=== PATIENT | male | born 1970 | race Caucasian/White ===

== ENCOUNTER 2022-03-31 12:13 | Emergency (ER) | payer OTHER, SELFPAY ==
[2022-03-31 13:03] VITALS: BP 151/71; PULSE 71; RESP 16; TEMP 36.3; O2SAT 99; BMI 25.1
[2022-03-31 13:34] LABS: MANUAL DIFF FLAG NO
[2022-03-31 13:37] LABS: Basophils Percent Auto 0.4 % (0-2); Eosinophils Absolute Auto 0.2 X10*3/uL (0.0-0.4); Eosinophils Percent Auto 2.1 % (0-4); Hemoglobin 14.6 g/dl (14.0-18.0); Imm Gran Abs Auto 0.04 X10*3/uL (0.00-0.03); Imm Gran Pct Auto 0.4 % (0.0-0.4); Lymphocytes Absolute Auto 1.4 X10*3/uL (1.2-4.9); Lymphocytes Percent Auto 13.3 % (20-40); Mean Corpuscular Hemoglobin 31.3 pg (27.0-33.0); Mean Corpuscular Volume 92.3 fL (80.0-98.0); Mean Platelet Volume 8.8 fL (9.4-12.4); Monocytes Absolute Auto 0.8 X10*3/uL (0.1-1.2); Monocytes Percent Auto 7.9 % (2-11); Neutrophils Percent Auto 75.9 % (45-73); Platelet Count 301 X10*3/uL (160-400); Red Blood Count 4.66 X10*6/uL (4.60-5.80); Red Cell Distribution Width 12.5 % (11.0-16.0); White Blood Count 10.5 X10*3/uL (4.8-10.8)
[2022-03-31 14:01] LABS: Anion Gap 17 (12-20); Blood Urea Nitrogen 13 mg/dL (9-16); Calcium 9.6 mg/dL (8.4-10.2); Carbon Dioxide 22 mmol/L (22-29); Chloride 103 mmol/L (96-108); Creatinine Clr Calc Pharmacy 109.1; Estimated Glomerular Filt Rate > 60; Glucose Random 135 mg/dL (60-115); Potassium 4.3 mmol/L (3.3-5.1); Sodium 138 mmol/L (135-145)
[2022-03-31 14:20] LABS: Erythrocyte Sedimentation Rate 31 MM/HR (0-15)
[2022-03-31 15:23] LABS: C Reactive Protein 2.08 mg/dL (< or = 0.50)
[2022-03-31] MEDS: Lidocaine HCl 1 % MPF 5 ML VIAL SUBCUT (16:22)
--- NOTE | 2022-03-31 16:25 | ED.SKABFB ---
HPI - Skin/Abscess/Foreign Bdy General Chief complaint: Skin/Abscess/Foreign Body Stated complaint: Abscess Time Seen by Provider: 03/31/22 14:25 Source: patient Mode of arrival: ambulatory History of Present Illness HPI narrative: 51-year-old male with a past medical history of IVDA presenting to the ED complaining of abscesses to bilateral arms x1 month admits to injecting cocaine which caused abscesses. Reports erythema and pain to left arm. Denies fever, chills, drainage from areas MD complaint: abscess/boil Onset (ago): month(s) Related Data Previous Rx's Medication Instructions Recorded cephalexin 500 mg capsule 500 mg PO QID 7 days #28 caps 03/31/22 doxycycline hyclate 100 mg tablet 100 mg PO BID 7 days #14 tabs 03/31/22 Allergies Allergy/AdvReac Type Severity Reaction Status Date / Time No Known Allergies Allergy Verified 03/31/22 13:02 Review of Systems Review of Systems: Constitutional: No Fever, No Chills ENT/Mouth: No Ear Pain, No Nasal Congestion, No sore throat, No Rhinorrhea, No Swallowing Difficulty Cardiovascular: No Chest Pain, No SOB Respiratory: No Cough, No Sputum, No Wheezing Gastrointestinal: No Nausea, No Vomiting, No Abdominal pain Genitourinary: No Dysuria, No Urinary Frequency, No Hematuria, No Flank Pain Musculoskeletal: No joint pain, No Myalgias, No Joint Swelling Skin: + Skin Lesions, No rash Neuro: No Weakness, No Numbness, No Paresthesias Yes all other systems are reviewed and are negative Constitutional: Constitutional: Reports as per HPI [facility] Past Medical History Attestation statement: The following information was validated with the patient. Social History Social History Advance Directives: No Advance Directives Information Provided: No Physical Exam Vital Signs: Vital Signs: Last Vital Signs Temp 97.4 F 03/31/22 13:03 Pulse 71 03/31/22 13:03 Resp 16 03/31/22 13:03 BP 151/71 H 03/31/22 13:03 Pulse Ox 99 03/31/22 13:03 O2 Del Method 03/31/22 13:03 BMI result Body Mass Index 25.1 Const: General: cooperative, healthy appearing and no acute distress Orientation/consciousness: patient oriented x3 Limitations: no limitations HEENT: Head: Yes normal to inspection and Yes atraumatic Ears: hearing grossly normal bilaterally General nose exam: Normal external nose present Face and sinus: Yes normal facial exam Eyes: General: appearance normal, both eyes and all related structures EOM: EOMs intact bilaterally Neck: Neck: Yes normal visual inspection and Yes no meningeal signs Resp: Effort & Inspection: normal respiratory effort and no respiratory distress Cardio: Rate: regular rate Heart sounds: S1 normal heart sound present and S2 normal heart sound present Peripheral pulses: Peripheral pulses 2+ throughout Skin: Other: multiple indurated abscesses/track morrison noted to bilateral upper extremities + erythema and induration to left bicep abscess with warmth and tenderness. No fluctuance. No streaking Dorsal aspect of left hand with small erythematous abscess with small area of fluctuance. No active drainage or pointing. Rashes: no rashes Neuro: General: patient oriented x3, tone normal and no meningeal signs Gait exam (Neuro): Normal gait present Extrem: General: Yes normal to inspection Course Course Course Narrative: -1630--no leukocytosis. ESR mildly elevated to 31. CRP mildly elevated to 2.0. Lactic acid negative. -hand abscess I&D'd. patient interested in speaking with recovery > patient doesnt want to wait for recover/CARE teamm Results discussed with patient including worrisome signs and symptoms and strict return precautions, and when to return to the emergency department. They verbalized understanding and feel safe for discharge at this time. Medications Administered Discontinued Medications Generic Name Dose Route Start Last Admin Trade Name Freq PRN Reason Stop Dose Admin Lidocaine HCl 5 ml 03/31/22 15:12 03/31/22 16:22 Lidocaine Hcl 1 % Mpf 5 Ml Vial SUBCUT 03/31/22 15:13 5 ml ONCE ONE Administration MDM - Skin/Abscess/Foreign Bdy MDM Narrative Medical decision making narrative: 51-year-old male with a past medical history of IVDA presenting to the ED complaining of abscesses to bilateral arms x1 month admits to injecting cocaine which caused abscesses. On exam vital signs stable, NAD, nontoxic appearing, physical exam as above concerning for multiple indurated abscesses and overlying cellulitis to left arm. Left hand abscess drainable at this time. No streaking/lymphangitis Plan: Labs, lactic/blood cultures, I&D hand abscess Differential Diagnosis Differential diagnosis: Likely abscess of skin or subcutaneous tissue and cellulitis Medical Records Attestation: I reviewed the patient's medical records. Lab Data Attestation: I reviewed the patient's lab results. Result diagrams: 03/31/22 13:30 03/31/22 13:30 Labs: Lab Results 03/31/22 03/31/22 03/31/22 Range/Units 13:30 13:30 13:30 WBC 10.5 (4.8-10.8) X10*3/uL RBC 4.66 (4.60-5.80) X10*6/uL Hgb 14.6 (14.0-18.0) g/dl Hct 43.0 (42.0-52.0) % MCV 92.3 (80.0-98.0) fL MCH 31.3 (27.0-33.0) pg MCHC 34.0 (31.0-36.0) g/dl RDW 12.5 (11.0-16.0) % Plt Count 301 (160-400) X10*3/uL MPV 8.8 L (9.4-12.4) fL Immature Gran % (Auto) 0.4 (0.0-0.4) % Neut % (Auto) 75.9 H (45-73) % Lymph % (Auto) 13.3 L (20-40) % Camp % (Auto) 7.9 (2-11) % Eos % (Auto) 2.1 (0-4) % Baso % (Auto) 0.4 (0-2) % Lymph # (Auto) 1.4 (1.2-4.9) X10*3/uL Camp # (Auto) 0.8 (0.1-1.2) X10*3/uL Eos # (Auto) 0.2 (0.0-0.4) X10*3/uL Baso # (Auto) 0.0 (0.0-0.2) X10*3/uL Abs Immat Gran (auto) 0.04 H (0.00-0.03) X10*3/uL Absolute Neuts (auto) 8.0 (2.0-8.3) x10*3/uL Absolute Nucleated RBC 0.000 (0.0-0.012) X10*3/uL Nucleated RBC % (auto) 0.0 (0.0-0.2) /100WBC ESR 31 H (0-15) MM/HR Sodium 138 (135-145) mmol/L Potassium 4.3 (3.3-5.1) mmol/L Chloride 103 (96-108) mmol/L Carbon Dioxide 22 (22-29) mmol/L Anion Gap 17 (12-20) BUN 13 (9-16) mg/dL Creatinine 0.81 (0.5-1.4) mg/dL Estim Creat Clear Calc 109.1 Estimated GFR > 60 Random Glucose 135 H (60-115) mg/dL Lactic Acid (0.5-2.0) mmol/L Calcium 9.6 (8.4-10.2) mg/dL C-Reactive Protein 2.08 H (< or = 0.50) mg/dL 03/31/22 Range/Units 15:27 WBC (4.8-10.8) X10*3/uL RBC (4.60-5.80) X10*6/uL Hgb (14.0-18.0) g/dl Hct (42.0-52.0) % MCV (80.0-98.0) fL MCH (27.0-33.0) pg MCHC (31.0-36.0) g/dl RDW (11.0-16.0) % Plt Count (160-400) X10*3/uL MPV (9.4-12.4) fL Immature Gran % (Auto) (0.0-0.4) % Neut % (Auto) (45-73) % Lymph % (Auto) (20-40) % Camp % (Auto) (2-11) % Eos % (Auto) (0-4) % Baso % (Auto) (0-2) % Lymph # (Auto) (1.2-4.9) X10*3/uL Camp # (Auto) (0.1-1.2) X10*3/uL Eos # (Auto) (0.0-0.4) X10*3/uL Baso # (Auto) (0.0-0.2) X10*3/uL Abs Immat Gran (auto) (0.00-0.03) X10*3/uL Absolute Neuts (auto) (2.0-8.3) x10*3/uL Absolute Nucleated RBC (0.0-0.012) X10*3/uL Nucleated RBC % (auto) (0.0-0.2) /100WBC ESR (0-15) MM/HR Sodium (135-145) mmol/L Potassium (3.3-5.1) mmol/L Chloride (96-108) mmol/L Carbon Dioxide (22-29) mmol/L Anion Gap (12-20) BUN (9-16) mg/dL Creatinine (0.5-1.4) mg/dL Estim Creat Clear Calc Estimated GFR Random Glucose (60-115) mg/dL Lactic Acid 1.0 (0.5-2.0) mmol/L Calcium (8.4-10.2) mg/dL C-Reactive Protein (< or = 0.50) mg/dL Procedures Abscess I/D Site: hand Side (if applicable): left Local Anesthetic: lidocaine 1% Amount of anesthesia used (mL): 2 Technique: incised with blade Sent for culture/gram staining?: No Irrigation: Yes Packing used?: none Discharge Plan Discharge Clinical Impression: Abscess of skin or subcutaneous tissue, Cellulitis Patient Disposition: Home, Self-Care Instructions: Abscess (ED), Abscess Follow-up (ED) Additional Instructions: Your blood work was reassuring. Does show mild elevation in her inflammatory markers Keflex and doxycycline or antibiotics please take as prescribed Avoid the sun while in doxycycline as can making prone to sunburn Please avoid drug use If areas look worse, are spreading, or pointing/turn to white headache, you have fever or red streaking up your arm return to the ED Prescriptions: New cephalexin 500 mg capsule 500 mg PO QID 7 Days Qty: 28 0RF doxycycline hyclate 100 mg tablet 100 mg PO BID 7 Days Qty: 14 0RF Referrals: [facility] [Provider Group] [facility] [Provider Group] [facility] [Outside]
== END 2022-03-31 17:41 | disposition home or self-care (01) ==
PROVIDERS: Physician Assistant; Emergency Provider Emergency Medicine
DX: L02.414 Cutaneous abscess of left upper limb (principal); L03.114 Cellulitis of left upper limb; M79.602 Pain in left arm; L02.413 Cutaneous abscess of right upper limb; F19.10 Other psychoactive substance abuse, uncomplicated
CPT/HCPCS: 10060; 36415; 80048; 83605; 85025; 85652; 86140; 87040; 99282; 99284

== ENCOUNTER 2022-04-23 09:54 | Emergency (ER) | payer OTHER, SELFPAY ==
[2022-04-23 09:57] VITALS: BP 139/86; PULSE 86; RESP 16; TEMP 36.4; O2SAT 99; BMI 25.8
[2022-04-23 12:51] VITALS: BP 156/74; PULSE 58; RESP 16; TEMP 36.9; O2SAT 98
--- NOTE | 2022-04-23 13:39 | ED_ITS ---
HPI - General Adult General Chief complaint: Skin/Abscess/Foreign Body Stated complaint: abscess Time Seen by Provider: 04/23/22 13:04 Source: patient Mode of arrival: ambulatory Limitations: no limitations History of Present Illness HPI narrative: 51-year-old male history of cocaine use by IV injection presents to ED for abscess cellulitis. Patient was seen here last month for similar presentation and had improvement of abscess and cellulitis after being given antibiotics. Patient states they improved and then 2 days ago he relapsed and inject himself again. Patient does not want detox. Patient patient states no fever or chills. Patient states no needle broke inside his arm. Patient would like to trial oral antibiotis. Related Data Previous Rx's Medication Instructions Recorded cephalexin 500 mg capsule 500 mg PO QID 7 days #28 caps 03/31/22 doxycycline hyclate 100 mg tablet 100 mg PO BID 7 days #14 tabs 03/31/22 cephalexin 500 mg capsule 500 mg PO QID 7 days #28 caps 04/23/22 doxycycline hyclate 100 mg capsule 100 mg PO BID 7 days #14 caps 04/23/22 Allergies Allergy/AdvReac Type Severity Reaction Status Date / Time No Known Allergies Allergy Verified 04/23/22 09:59 Review of Systems Review of Systems: cellulits/abscess. IV injection couple of days ago Yes all other systems are reviewed and are negative [facility] Social History Social History Advance Directives: No Advance Directives Information Provided: Yes Physical Exam ED Vital Signs: Vital Signs - 24 hr 04/23/22 09:57 04/23/22 12:51 Temperature 97.5 F 98.4 F Pulse Rate 86 58 Respiratory Rate 16 16 Blood Pressure 139/86 156/74 H Pulse Oximetry 99 98 Oxygen Delivery Method Room Air Room Air BMI result Body Mass Index 25.8 Const General: cooperative, healthy appearing, comfortable, no acute distress, well developed, alert, awake and Physically active Orientation/consciousness: oriented to time and patient oriented x3 Eyes General: appearance normal, both eyes and all related structures Neck Neck: Yes normal visual inspection, Yes full ROM, Yes no lymphadenopathy, Yes no meningeal signs, Yes trachea midline, Yes supple, No anterior neck swelling and No tender Chest Chest palpation & inspection: normal inspection of the chest and normal palpation of entire chest wall Resp Effort & Inspection: normal respiratory effort and able to speak in complete sentences Auscultation: clear to auscultation bilaterally Cardio Jugular venous distension: no JVD Heart sounds: S1 normal heart sound present and S2 normal heart sound present GI Inspection: Yes normal to inspection and No abdominal wall ecchymosis Palpation (GI): Soft to palpation, not firm, nontender, no guarding and not rigid General: No CVA tenderness and Yes no CVA tenderness Back/Spine/Pelvis Back: no CVA tenderness, No CVA tenderness and No back tenderness Skin Other: cellulitis/abscess Neuro General: oriented to time, patient oriented x3, gait normal and no meningeal signs Extrem Shoulder/upper arm images: 1. Old chronic cellulitic abscess nontender, nonerythematous, and nonfluctuant. 2. Small area of erythema/warmth, but negative for any fluctuance, pus discharge, or foul odor. 3. Small area of erythema with warmth. Negative for any fluctuance pus discharge, mass, followed up Hand/finger images: 1. Small area of erythema and warmth. Negative for fluctuance or mass on palpation. Hand is not swollen. Complete range of motion of fingers. Negative for signs of tenosynovitis. Motor/neuro/vascular exam intact Psych Appearance: grossly normal, well kempt and not disheveled Course Course Course Narrative: Patient well appearing vital signs stable. Reevaluation(s) Reevaluation #1: Patient does not want detox. Patient prefer trial of oral antibiotics. Patient presently does not want inpatient care. Patient well-appearing. Negative for any abscess ready for incision and drainage. Presently not suspecting sepsis. Vital signs stable. Patient was informed due to history of IV drug use with cocaine he should have a low threshold for return to the ED. patient inform any fever, chills, sensation of weakness, worsening rash, worsening erythema, worsening abscess, pus discharge, foul odor, any other concerning symptoms he should come back to the ER. Time: 14:10 Discharge Plan Discharge Clinical Impression: Cellulitis, Abscess of skin or subcutaneous tissue Patient Disposition: Home, Self-Care Instructions: Cellulitis (ED), Abscess (ED) Additional Instructions: Return to the ED immediately for any fever, chills, weakness, dizziness, increased redness, increased size, fever, pus discharge, foul odor, or any other concerning symptoms. Prescriptions: New cephalexin 500 mg capsule 500 mg PO QID 7 Days Qty: 28 0RF doxycycline hyclate 100 mg capsule 100 mg PO BID 7 Days Qty: 14 0RF No Action cephalexin 500 mg capsule 500 mg PO QID 7 Days Qty: 28 0RF doxycycline hyclate 100 mg tablet 100 mg PO BID 7 Days Qty: 14 0RF Referrals: Cipriano Cintron III, MD [Primary Care Provider] - (Cellulitis/abscess) Stand Alone Forms: Work/School Release Interventions: ED Discharge Assessment Last Done: 04/23/22 13:53 Discharge Date/Time: 04/23/22 13:55 Print Language: Citizen Of [place]
== END 2022-04-23 13:55 | disposition home or self-care (01) ==
PROVIDERS: Emergency Provider Emergency Medicine; PCP Internal Medicine
DX: L02.414 Cutaneous abscess of left upper limb (principal); L02.413 Cutaneous abscess of right upper limb; L03.90 Cellulitis, unspecified
CPT/HCPCS: 99283

== ENCOUNTER 2022-09-17 10:21 | Emergency (ER) | payer OTHER, SELFPAY ==
[2022-09-17 10:40] VITALS: BP 151/77; PULSE 82; RESP 19; TEMP 36.6; O2SAT 99; BMI 25.8
--- NOTE | 2022-09-17 11:31 | ED.GENADULT ---
HPI - General Adult General Chief complaint: Wound/Laceration Stated complaint: Blood poisoning? Time Seen by Provider: 09/17/22 11:28 Source: patient Mode of arrival: ambulatory Limitations: no limitations History of Present Illness HPI narrative: Patient is a 51 year old assigned male at with a history of IVDU presenting to the emergency department today with an abscess. Patient states that he is shooting up IV cocaine and now has multiple swollen areas on his arms. Patient denies any dizziness, lightheadedness, abdominal pain, nausea, vomiting, fever, chills, blurry vision, double vision, loss of vision, chest pain, difficulty breathing, shortness of breath, back pain, night sweats, pain with urination, increased urinary frequency, increased urinary urgency, blood in his urine or stool, syncope or a near syncopal episode, recent trauma or falls, bowel incontinence, bladder incontinence, bowel retention, bladder retention, or any other complaints at this time. Onset (ago): day(s) Location: left, right and upper extremity Severity: mild Severity scale (1-10): 3 Relieving factors: none Exacerbating factors: none Associated symptoms: denies other symptoms Treatments prior to arrival: none Related Data Previous Rx's Medication Instructions Recorded cephalexin 500 mg capsule 500 mg PO QID 7 days #28 caps 03/31/22 doxycycline hyclate 100 mg tablet 100 mg PO BID 7 days #14 tabs 03/31/22 cephalexin 500 mg capsule 500 mg PO QID 7 days #28 caps 04/23/22 doxycycline hyclate 100 mg capsule 100 mg PO BID 7 days #14 caps 04/23/22 cephalexin 500 mg capsule 500 mg PO Q6H 7 days #28 caps 09/17/22 doxycycline hyclate 100 mg tablet 100 mg PO BID 7 days #14 tabs 09/17/22 Allergies Allergy/AdvReac Type Severity Reaction Status Date / Time No Known Allergies Allergy Verified 09/17/22 10:39 Review of Systems Constitutional: Constitutional: Reports no additional constitutional complaints, Denies chills, Denies fever(s) and Denies night sweats Eyes: Eyes: Reports no additional eye complaints, Denies blurry vision, Denies change in vision, Denies diplopia, Denies eye discharge, Denies loss of vision and Denies eye pain ENT: Denies dizziness Cardiovascular: Cardiovascular: Reports no additional cardiovascular complaints, Denies chest pain, Denies lightheadedness, Denies Loss of Consciousness and Denies dyspnea Respiratory: Respiratory: Reports no additional respiratory complaints and Denies dyspnea Gastrointestinal: Gastrointestinal: Reports no additional gastrointestinal complaints, Denies abdominal pain, Denies melena, Denies hematochezia, Denies change in bowel habits and Denies change in stool character Genitourinary: Genitourinary: Reports no additional male genitourinary complaints, Denies hematuria, Denies oliguria, Denies difficulty urinating, Denies dysuria, Denies urinary frequency, Denies urinary hesitancy, Denies urinary incontinence and Denies urinary urgency Musculoskeletal: Musculoskeletal: Reports no additional musculoskeletal complaints, Denies numbness and Denies tingling Integumentary/Breasts: Comments: large abscess to the left bicep, multiple track morrison to bilateral arms Neurologic: Denies dizziness, Denies loss of vision, Denies numbness and Denies tingling Psychiatric: Psychiatric: Reports no additional psychiatric complaints Endocrine: Endocrine: Reports no additional endocrine complaints Hematologic/Lymphatic: Hematologic/Lymphatic: Reports no additional hematologic/lymphatic complaints Allergic/Immunologic: Allergic/Immunologic: Reports no additional allergic/immunologic complaints [facility] Past Medical History Attestation statement: The following information was validated with the patient. Source: old records reviewed and nursing notes reviewed Social History Social History Advance Directives: No Advance Directives Information Provided: No Physical Exam ED Vital Signs: Vital Signs - 24 hr 09/17/22 10:40 Temperature 98 F Pulse Rate 82 Respiratory Rate 19 Blood Pressure 151/77 H Pulse Oximetry 99 Oxygen Delivery Method Room Air BMI result Body Mass Index 25.8 Const General: cooperative, no acute distress, alert and awake Nutritional Appearance: well nourished Orientation/consciousness: patient oriented x3 Limitations: no limitations HENMT Head: Yes normal to inspection and Yes atraumatic Ears: hearing grossly normal bilaterally and external ears normal General nose exam: Normal external nose present, no nasal discharge noted and no epistaxis Face and sinus: Yes normal facial exam, No abrasion and No laceration Mouth: Normal oral and palatal mucosa present, no drooling and no muffled voice Eyes General: appearance normal, both eyes and all related structures Periorbital: periorbital findings normal Eyelids: Yes eyelids normal Conjunctivae: conjunctivae normal Pupils: Equal, round and reactive pupils present EOM: EOMs intact bilaterally Neck Neck: Yes normal visual inspection, Yes full ROM and Yes no lymphadenopathy Chest Chest palpation & inspection: normal inspection of the chest Resp Effort & Inspection: normal respiratory effort and able to speak in complete sentences Auscultation: clear to auscultation bilaterally Cardio Rate: regular rate Rhythm: regular rhythm GI Inspection: Yes normal to inspection Neuro General: patient oriented x3 and moves all extremities Cranial nerves: Yes Equal, round and reactive pupils present Cognition (Neuro): normal cognition Motor exam (neuro): 5/5 motor strength present throughout Sensory Exam: Normal double simultaneous stimulation for sensation Coordination: [id number] test normal Extrem Other: large abscess present to the anterior left bicep and multiple track morrison present to bilateral arms General: Yes full ROM and Yes capillary refill normal Psych Appearance: grossly normal Mental Status: mental status grossly normal Affect: normal affect Attitude: cooperative Thought process: Normal thought process present Thought content: Normal thought content present Insight: Good insight present (Psych) Medications Administered Discontinued Medications Generic Name Dose Route Start Last Admin Trade Name Hector PRN Reason Stop Dose Admin Lidocaine HCl 10 ml 09/17/22 11:46 09/17/22 12:42 Lidocaine Hcl 1 % Mpf 5 Ml Vial SUBCUT 09/17/22 11:47 10 ml ONCE ONE Administration Procedures Abscess I/D Site: upper extremity Side (if applicable): left Local Anesthetic: lidocaine 1% Amount of anesthesia used (mL): 5 Technique: incised with blade Amount of fluid expressed (mL): 25 Sent for culture/gram staining?: No Irrigation: No Packing used?: none Medical Decision Making Medical Decision Making MDM Narrative: Patient is a 51 year old assigned male at with a history of IVDU presenting to the emergency department today with a left bicep abscess. Patient's physical exam showed multiple track morrison to bilateral upper arms and 1 large abscess to the left anterior bicep. I explained my physical exam findings to the patient. I answered all questions asked by the patient. I incised and drained the large left bicep abscess, without incident, per procedure note. Recovery team met with the patient and provided sobriety resources. I stressed the importance of the patient taking his medication as prescribed. I stressed the importance of the patient following up with his primary care provider. I stressed the importance of the patient returning to the emergency department immediately if his symptoms were to worsen or if he were to develop any dizziness, shortness of breath, difficulty breathing, chest pain, blurry vision, loss of vision, nausea, vomiting, abdominal pain, fever, chills, back pain, or any other complaints. Patient verbalized agreement and understanding with this treatment plan and discharge. Differential Diagnosis Differential Diagnoses: The differential diagnosis associated with the presentation includes left bicep abscess Discharge Plan Discharge Clinical Impression: Abscess Patient Disposition: Home, Self-Care Instructions: Abscess (ED), Abscess Incision and Drainage (DC) Additional Instructions: Apply warm compresses to the other affected areas. Follow up with your primary care provider. Return to the emergency department immediately if your symptoms worsen or if you develop any dizziness, shortness of breath, difficulty breathing, chest pain, blurry vision, loss of vision, nausea, vomiting, abdominal pain, fever, chills, back pain, or any other complaints. Prescriptions: New cephalexin 500 mg capsule 500 mg PO Q6H 7 Days Qty: 28 0RF doxycycline hyclate 100 mg tablet 100 mg PO BID 7 Days Qty: 14 0RF No Action cephalexin 500 mg capsule 500 mg PO QID 7 Days Qty: 28 0RF doxycycline hyclate 100 mg capsule 100 mg PO BID 7 Days Qty: 14 0RF cephalexin 500 mg capsule 500 mg PO QID 7 Days Qty: 28 0RF doxycycline hyclate 100 mg tablet 100 mg PO BID 7 Days Qty: 14 0RF Referrals: Cipriano Cintron III, MD [Primary Care Provider] - Stand Alone Forms: Work/School Release Interventions: ED Discharge Assessment Last Done: 09/17/22 12:48 Discharge Date/Time: 09/17/22 12:49 Print Language: Serbian
--- NOTE | 2022-09-17 12:19 | MHC.RECOVSUP ---
Met with pt in [facility] to provide and review recovery resources. Pt shares he has been using cocaine intravenously after having been sober for 4 days. Pt shares he struggles as his coworker uses and he relies on this coworker for a ride to work. Stating his coworker always offers him cocaine and makes it hard for him to avoid it. Pt informs his brother is a head strength and conditioning coach but is open to seeing another head strength and conditioning coach and trying therapy. Pt shares he is not ready to try ATS or CSS as he doesn't want to lose his apartment or job, but if utilizing recovery resources does not work he will consider ATS. Pt has no other questions or concerns at this time.
[2022-09-17] MEDS: Lidocaine HCl 1 % MPF 5 ML VIAL 10 ML SUBCUT (12:42)
== END 2022-09-17 12:49 | disposition home or self-care (01) ==
PROVIDERS: Emergency Provider Emergency Medicine; PCP Internal Medicine
DX: L02.414 Cutaneous abscess of left upper limb (principal); Z79.899 Other long term (current) drug therapy
CPT/HCPCS: 10060; 99282; 99284

== ENCOUNTER 2022-10-14 12:48 | Emergency (ER) | payer OTHER, SELFPAY ==
--- NOTE | ~2022-10-14 | XR_ITS ---
EXAMINATION: XR FOREARM, RIGHT CLINICAL INFORMATION: Redness. Rule out osteomyelitis. COMPARISON: None available. TECHNIQUE: AP and lateral views of the right forearm were obtained. FINDINGS: The bones and soft tissues are normal. No fracture. Imaged portions of the elbow and wrist are unremarkable. XR/XR forearm RT 2V IMPRESSION: Normal right forearm. No soft tissue gas or bony erosive changes seen to suspect any osteomyelitis.
[2022-10-14 12:54] VITALS: BP 117/55; PULSE 73; RESP 17; TEMP 35.9; O2SAT 100
[2022-10-14 15:47] LABS: MANUAL DIFF FLAG NO
[2022-10-14 15:49] LABS: Lactic Acid 2.1 mmol/L (0.5-2.0)
[2022-10-14 15:53] LABS: Basophils Absolute Auto 0.1 X10*3/uL (0.0-0.2); Basophils Percent Auto 0.4 % (0-2); Eosinophils Absolute Auto 0.3 X10*3/uL (0.0-0.4); Eosinophils Percent Auto 2.3 % (0-4); Hematocrit 38.7 % (42.0-52.0); Hemoglobin 12.8 g/dl (14.0-18.0); Imm Gran Abs Auto 0.04 X10*3/uL (0.00-0.03); Imm Gran Pct Auto 0.3 % (0.0-0.4); Lymphocytes Absolute Auto 1.9 X10*3/uL (1.2-4.9); Mean Corpuscular HGB Conc 33.1 g/dl (31.0-36.0); Mean Corpuscular Hemoglobin 31.1 pg (27.0-33.0); Mean Corpuscular Volume 94.2 fL (80.0-98.0); Mean Platelet Volume 9.1 fL (9.4-12.4); Monocytes Absolute Auto 1.1 X10*3/uL (0.1-1.2); Monocytes Percent Auto 8.2 % (2-11); Neutrophils Absolute Auto 9.5 x10*3/uL (2.0-8.3); Neutrophils Percent Auto 73.8 % (45-73); Platelet Count 309 X10*3/uL (160-400); Red Blood Count 4.11 X10*6/uL (4.60-5.80); Red Cell Distribution Width 12.6 % (11.0-16.0); White Blood Count 12.9 X10*3/uL (4.8-10.8)
[2022-10-14 16:09] LABS: Anion Gap 11 (12-20); Blood Urea Nitrogen 13 mg/dL (9-16); C Reactive Protein 1.13 mg/dL (< or = 0.50); Calcium 8.9 mg/dL (8.4-10.2); Carbon Dioxide 26 mmol/L (22-29); Chloride 106 mmol/L (96-108); Estimated Glomerular Filt Rate > 60; Glucose Random 109 mg/dL (60-115); Potassium 4.3 mmol/L (3.3-5.1); Sodium 139 mmol/L (135-145)
[2022-10-14] MEDS: 0.9 % Sodium Chloride 1,000 ML 999 ML IV ×2 (16:35)
--- NOTE | 2022-10-14 16:56 | ED_ITS ---
HPI - General Adult General Chief complaint: Wound/Laceration Stated complaint: Severe Sepsis Time Seen by Provider: 10/14/22 16:08 Source: patient Mode of arrival: ambulatory Limitations: no limitations History of Present Illness HPI narrative: 51 yold male IV drug use presents to the ED for right forearm redness/pain with wound. Patient denies injecting IV drugs into forearm. patient states bodyaches and chills, but no fever. patient denies any chest pain or shortness of breath Related Data Previous Rx's Medication Instructions Recorded cephalexin 500 mg capsule 500 mg PO QID 7 days #28 caps 03/31/22 doxycycline hyclate 100 mg tablet 100 mg PO BID 7 days #14 tabs 03/31/22 cephalexin 500 mg capsule 500 mg PO QID 7 days #28 caps 04/23/22 doxycycline hyclate 100 mg capsule 100 mg PO BID 7 days #14 caps 04/23/22 cephalexin 500 mg capsule 500 mg PO Q6H 7 days #28 caps 09/17/22 doxycycline hyclate 100 mg tablet 100 mg PO BID 7 days #14 tabs 09/17/22 cephalexin 500 mg capsule 500 mg PO QID 7 days #28 caps 10/14/22 doxycycline hyclate 100 mg capsule 100 mg PO BID 7 days #14 caps 10/14/22 Allergies Allergy/AdvReac Type Severity Reaction Status Date / Time No Known Allergies Allergy Verified 09/17/22 10:39 Review of Systems Review of Systems: right forearm area of redness Yes all other systems are reviewed and are negative PMFSH Social History Social History Smoked in Last 30 Days: Yes Use of substances other than those prescribed or required for medical reasons: Yes Substance Use Type: Crack/Cocaine and Heroin Substance Use Frequency: Chronic Longstanding Last Used Substance: Just Prior to Admission Advance Directives: No Advance Directives Information Provided: No Physical Exam ED Vital Signs: Vital Signs - 24 hr 10/14/22 12:54 10/14/22 20:09 Temperature 96.7 F L 98.3 F Pulse Rate 73 94 Respiratory Rate 17 18 Blood Pressure 117/55 L 119/65 Pulse Oximetry 100 98 Oxygen Delivery Method Room Air Room Air BMI result Body Mass Index 0.2 Const General: cooperative, healthy appearing, comfortable, no acute distress, well developed, alert, awake and Physically active Orientation/consciousness: oriented to person, oriented to place, oriented to time and patient oriented x3 [facility] Head: Yes normal to inspection, Yes No palpable skull fracture present, Yes normocephalic, Yes atraumatic and No abrasion Eyes General: appearance normal, both eyes and all related structures Neck Neck: Yes normal visual inspection, Yes full ROM, Yes no lymphadenopathy, Yes no meningeal signs, Yes trachea midline, Yes supple, No anterior neck swelling and No tender Chest Chest palpation & inspection: normal inspection of the chest and normal palpatio n of entire chest wall Resp Effort & Inspection: normal respiratory effort and able to speak in complete sentences Auscultation: clear to auscultation bilaterally Cardio Jugular venous distension: no JVD Heart sounds: S1 normal heart sound present and S2 normal heart sound present GI Inspection: Yes normal to inspection and No abdominal wall ecchymosis Palpation (GI): Soft to palpation, not firm, nontender, no guarding and not rigid General: No CVA tenderness and Yes no CVA tenderness Back/Spine/Pelvis Back: no CVA tenderness, No CVA tenderness and No back tenderness Skin General skin exam: no rashes or lesions noted and elasticity normal Neuro General: oriented to person, oriented to place, oriented to time, patient oriented x3, gait normal, tone normal, moves all extremities, Normal light touch and pain sensation, no meningeal signs, no focal motor deficits, CN's II-XI intact bilaterally and normal sensation to monofilament Extrem Other: RIght forearm area with wome erythema. negative for fluctulnace. Serosangous discharge from wound. Vascular/motor/neuro exam of extremity is intact. General: Yes normal to inspection and Yes full ROM Psych Appearance: grossly normal, well kempt and not disheveled Course Course Course Narrative: 51 yold male with right forearm redness. Medications Administered Discontinued Medications Generic Name Dose Route Start Last Admin Trade Name Freq PRN Reason Stop Dose Admin Sodium Chloride 1,000 mls @ 999 mls/hr 10/14/22 16:08 10/14/22 17:32 Ns IV 10/14/22 17:08 Infused .Q1H1M STA Infusion Sodium Chloride 1,000 mls @ 999 mls/hr 10/14/22 16:08 10/14/22 17:32 Ns IV 10/14/22 17:08 Infused .Q1H1M STA Infusion Piperacillin Sod/Tazobactam 50 mls @ 100 mls/hr 10/14/22 16:30 10/14/22 19:06 Sod 3.375 gm/ Sodium Chloride IV 10/14/22 16:59 Infused ONCE ONE Infusion Medical Decision Making Medical Decision Making [facility] Narrative: 51 Yo male IV drug use presents to ED for right redness area on forearm with serosanguineous fluid. Negative for fluctuance or palpable mass. Not yet ready to be drained. Most likely early cellulitis early abscess. X-ray negative for osteomyelitis. ESR and CRP elevated which is baseline. White count only 12. Lactic acid resolved. Patient is not septic or sick appearing. Patient received vancomycin in the ER. Patient will be discharged with p.o. antibiotics. HIsotry and physical exam does not indicate DVT. Differential Diagnosis Differential Diagnoses: The differential diagnosis associated with the presentation includes (Osteomyelitis, cellulitis, necrotizing fasciitis, DVT) Admission/Observation Consideration of admission/observation: Escalation of care including admission/observation considered Lab Data [facility] Lab Attestation statement: I reviewed the patient's lab results. 10/14/22 15:39 10/14/22 15:39 Labs: Lab Results 10/14/22 10/14/22 10/14/22 Range/Units 15:17 15:39 15:39 WBC 12.9 H (4.8-10.8) X10*3/uL RBC 4.11 L (4.60-5.80) X10*6/uL Hgb 12.8 L (14.0-18.0) g/dl Hct 38.7 L (42.0-52.0) % MCV 94.2 (80.0-98.0) fL MCH 31.1 (27.0-33.0) pg MCHC 33.1 (31.0-36.0) g/dl RDW 12.6 (11.0-16.0) % Plt Count 309 (160-400) X10*3/uL MPV 9.1 L (9.4-12.4) fL Immature Gran % (Auto) 0.3 (0.0-0.4) % Neut % (Auto) 73.8 H (45-73) % Lymph % (Auto) 15.0 L (20-40) % [place] % (Auto) 8.2 (2-11) % Eos % (Auto) 2.3 (0-4) % Baso % (Auto) 0.4 (0-2) % Lymph # (Auto) 1.9 (1.2-4.9) X10*3/uL [place] # (Auto) 1.1 (0.1-1.2) X10*3/uL Eos # (Auto) 0.3 (0.0-0.4) X10*3/uL Baso # (Auto) 0.1 (0.0-0.2) X10*3/uL Abs Immat Gran (auto) 0.04 H (0.00-0.03) X10*3/uL Absolute Neuts (auto) 9.5 H (2.0-8.3) x10*3/uL Absolute Nucleated RBC 0.000 (0.0-0.012) X10*3/uL Nucleated RBC % (auto) 0.0 (0.0-0.2) /100WBC ESR (0-15) MM/HR Sodium 139 (135-145) mmol/L Potassium 4.3 (3.3-5.1) mmol/L Chloride 106 (96-108) mmol/L Carbon Dioxide 26 (22-29) mmol/L Anion Gap 11 L (12-20) BUN 13 (9-16) mg/dL Creatinine 0.73 (0.5-1.4) mg/dL Estim Creat Clear Calc 126.0 Estimated GFR > 60 Random Glucose 109 (60-115) mg/dL Lactic Acid 2.1 H* (0.5-2.0) mmol/L Lactic Acid F/U @ 2Hr (0.5-2.0) mmol/L Calcium 8.9 D (8.4-10.2) mg/dL C-Reactive Protein 1.13 H (< or = 0.50) mg/dL 10/14/22 10/14/22 Range/Units 15:39 18:37 WBC (4.8-10.8) X10*3/uL RBC (4.60-5.80) X10*6/uL Hgb (14.0-18.0) g/dl Hct (42.0-52.0) % MCV (80.0-98.0) fL MCH (27.0-33.0) pg MCHC (31.0-36.0) g/dl RDW (11.0-16.0) % Plt Count (160-400) X10*3/uL MPV (9.4-12.4) fL Immature Gran % (Auto) (0.0-0.4) % Neut % (Auto) (45-73) % Lymph % (Auto) (20-40) % [place] % (Auto) (2-11) % Eos % (Auto) (0-4) % Baso % (Auto) (0-2) % Lymph # (Auto) (1.2-4.9) X10*3/uL [place] # (Auto) (0.1-1.2) X10*3/uL Eos # (Auto) (0.0-0.4) X10*3/uL Baso # (Auto) (0.0-0.2) X10*3/uL Abs Immat Gran (auto) (0.00-0.03) X10*3/uL Absolute Neuts (auto) (2.0-8.3) x10*3/uL Absolute Nucleated RBC (0.0-0.012) X10*3/uL Nucleated RBC % (auto) (0.0-0.2) /100WBC ESR 27 H (0-15) MM/HR Sodium (135-145) mmol/L Potassium (3.3-5.1) mmol/L Chloride (96-108) mmol/L Carbon Dioxide (22-29) mmol/L Anion Gap (12-20) BUN (9-16) mg/dL Creatinine (0.5-1.4) mg/dL Estim Creat Clear Calc Estimated GFR Random Glucose (60-115) mg/dL Lactic Acid (0.5-2.0) mmol/L Lactic Acid F/U @ 2Hr 1.0 (0.5-2.0) mmol/L Calcium (8.4-10.2) mg/dL C-Reactive Protein (< or = 0.50) mg/dL Independent Interpretation I performed an independent interpretation of an: Plain X-Ray Radiology Impression Discussion of test interpretation with radiology: I have reviewed the radiologist's reading. Prescription Management I considered prescription management with: Antibiotic Discharge Plan Discharge Clinical Impression: Cellulitis Patient Disposition: Home, Self-Care Instructions: Cellulitis (ED), Warm Compress or Soak (ED) Additional Instructions: Return to the ED for increased swelling, increased redness, pus discharge, foul odor, fever, chills, red streaks, chest pain, shortness of breath, or any other concerning symptoms. Please follow-up primary care provider Prescriptions: New cephalexin 500 mg capsule 500 mg PO QID 7 Days Qty: 28 0RF doxycycline hyclate 100 mg capsule 100 mg PO BID 7 Days Qty: 14 0RF No Action cephalexin 500 mg capsule 500 mg PO QID 7 Days Qty: 28 0RF doxycycline hyclate 100 mg capsule 100 mg PO BID 7 Days Qty: 14 0RF cephalexin 500 mg capsule 500 mg PO QID 7 Days Qty: 28 0RF doxycycline hyclate 100 mg tablet 100 mg PO BID 7 Days Qty: 14 0RF cephalexin 500 mg capsule 500 mg PO Q6H 7 Days Qty: 28 0RF doxycycline hyclate 100 mg tablet 100 mg PO BID 7 Days Qty: 14 0RF Interventions: ED Discharge Assessment Last Done: 10/14/22 20:30 Discharge Date/Time: 10/14/22 20:30 Print Language: Setswana
[2022-10-14] MEDS: Piperacillin Sodium/Tazobactam 3.375 GM in 0.9 % Sodium Chloride 50 ML IV (17:07)
[2022-10-14 17:14] LABS: Erythrocyte Sedimentation Rate 27 MM/HR (0-15)
[2022-10-14 17:21] LABS: Reflex Lactate? Lactic Acid Added
[2022-10-14 20:09] VITALS: BP 119/65; PULSE 94; RESP 18; TEMP 36.8; O2SAT 98
== END 2022-10-14 20:30 | disposition home or self-care (01) ==
PROVIDERS: Physician Assistant; Emergency Provider Emergency Medicine; PCP Internal Medicine
DX: L03.113 Cellulitis of right upper limb (principal); M79.631 Pain in right forearm; Z79.899 Other long term (current) drug therapy
CPT/HCPCS: 36415; 73090; 80048; 83605; 85025; 85652; 86140; 87040; 96361; 96365; 99284; J2543

== ENCOUNTER 2023-05-05 21:06 | Emergency (ER) | payer OTHER, SELFPAY ==
[2023-05-05 21:29] VITALS: BP 132/73; PULSE 88; RESP 20; TEMP 36.5; O2SAT 98; BMI 25.1
[2023-05-06 03:10] VITALS: BP 119/65; PULSE 61; RESP 16; TEMP 36.8; O2SAT 100
[2023-05-06 03:12] LABS: MANUAL DIFF FLAG NO
[2023-05-06 03:14] LABS: Basophils Absolute Auto 0.1 X10*3/uL (0.0-0.2); Basophils Percent Auto 0.5 % (0-2); Eosinophils Absolute Auto 0.6 X10*3/uL (0.0-0.4); Hematocrit 42.5 % (42.0-52.0); Hemoglobin 14.3 g/dl (14.0-18.0); Imm Gran Abs Auto 0.12 X10*3/uL (0.00-0.03); Lymphocytes Absolute Auto 3.4 X10*3/uL (1.2-4.9); Lymphocytes Percent Auto 28.2 % (20-40); Mean Corpuscular HGB Conc 33.6 g/dl (31.0-36.0); Mean Corpuscular Hemoglobin 31.3 pg (27.0-33.0); Mean Platelet Volume 9.5 fL (9.4-12.4); Monocytes Absolute Auto 1.4 X10*3/uL (0.1-1.2); Neutrophils Absolute Auto 6.3 x10*3/uL (2.0-8.3); Neutrophils Percent Auto 53.3 % (45-73); Platelet Count 319 X10*3/uL (160-400); Red Blood Count 4.57 X10*6/uL (4.60-5.80); Red Cell Distribution Width 12.9 % (11.0-16.0); White Blood Count 11.9 X10*3/uL (4.8-10.8)
[2023-05-06 03:30] LABS: Alanine Aminotransferase 56 U/L (0-40); Albumin Level 3.8 g/dL (3.5-5.0); Alkaline Phosphatase 77 U/L (39-117); Anion Gap 12 (12-20); Aspartate Amino Transferase 39 U/L (5-37); Bilirubin Total 0.2 mg/dL (0.0-1.0); Blood Urea Nitrogen 22 mg/dL (9-16); Calcium 9.3 mg/dL (8.4-10.2); Carbon Dioxide 25 mmol/L (22-29); Chloride 103 mmol/L (96-108); Creatinine Clr Calc Pharmacy 101.6; Estimated Glomerular Filt Rate > 60; Glucose Random 103 mg/dL (60-115); Potassium 4.2 mmol/L (3.3-5.1); Sodium 136 mmol/L (135-145); Total Protein 7.9 g/dL (6.5-8.0)
[2023-05-06 04:35] VITALS: BP 127/64; PULSE 80; RESP 16; TEMP 36.9; O2SAT 98
--- NOTE | 2023-05-06 06:28 | ED.GENADULT ---
HPI - General Adult General Chief complaint: General Medical Stated complaint: Blood poisoning? Time Seen by Provider: 05/06/23 06:27 Source: patient Mode of arrival: ambulatory Limitations: no limitations History of Present Illness HPI narrative: Patient is a 52-year-old male with history of IV drug use presenting to the emergency department with complaint of bilateral forearm scabs, redness and pain for the past several weeks. He reports subjective fevers and chills but has not taken his temperature with a thermometer. He denies any chest pain, palpitations, shortness of breath. Denies any headaches, vision changes, dizziness or lightheadedness. Denies any abdominal pain, nausea, vomiting, diarrhea. Denies any discharge or drainage from the wounds. He states that he is concerned for bacteremia/sepsis. MD complaint: Bilateral arm pain Onset (ago): week(s) Location: upper extremity Radiation: non-radiation Severity: moderate Quality: aching Pain Consistency: colicky Relieving factors: none Exacerbating factors: none Associated symptoms: fever/chills Treatments prior to arrival: none Related Data Previous Rx's Medication Instructions Recorded cephalexin 500 mg capsule 500 mg PO QID 7 days #28 caps 03/31/22 doxycycline hyclate 100 mg tablet 100 mg PO BID 7 days #14 tabs 03/31/22 cephalexin 500 mg capsule 500 mg PO QID 7 days #28 caps 04/23/22 doxycycline hyclate 100 mg capsule 100 mg PO BID 7 days #14 caps 04/23/22 cephalexin 500 mg capsule 500 mg PO Q6H 7 days #28 caps 09/17/22 doxycycline hyclate 100 mg tablet 100 mg PO BID 7 days #14 tabs 09/17/22 cephalexin 500 mg capsule 500 mg PO QID 7 days #28 caps 10/14/22 doxycycline hyclate 100 mg capsule 100 mg PO BID 7 days #14 caps 10/14/22 cephalexin 500 mg capsule 500 mg PO QID #28 caps 05/06/23 doxycycline hyclate 100 mg capsule 100 mg PO BID #14 caps 05/06/23 Allergies Allergy/AdvReac Type Severity Reaction Status Date / Time No Known Allergies Allergy Verified 09/17/22 10:39 Review of Systems Review of Systems: As per HPI. Yes all other systems are reviewed and are negative Constitutional: Constitutional: Reports as per HPI PMF Social History Social History Substance Use Type: Crack/Cocaine and Heroin Advance Directives: No Advance Directives Information Provided: No Physical Exam ED Vital Signs: Vital Signs - 24 hr 05/05/23 21:29 05/06/23 03:10 05/06/23 04:35 Temperature 97.7 F 98.3 F 98.5 F Pulse Rate 88 61 80 Respiratory Rate 20 16 16 Blood Pressure 132/73 119/65 127/64 Pulse Oximetry 98 100 98 Oxygen Delivery Method Room Air Room Air Room Air BMI result Body Mass Index 25.1 Vital signs have been reviewed and appear to be correct. Blood pressure normal. Heart rate normal. Respiratory rate normal. Temperature normal. Oxygen saturation normal. Const General: cooperative, healthy appearing and no acute distress Orientation/consciousness: oriented to person, oriented to place, oriented to time and patient oriented x3 Limitations: no limitations HENMT Head: Yes normocephalic and Yes atraumatic Ears: external ears normal General nose exam: Normal external nose present Face and sinus: Yes face symmetric Mouth: oropharynx normal and moist mucous membranes Throat: Yes uvula midline Eyes Pupils: Equal, round and reactive pupils present Neck Neck: Yes normal visual inspection and Yes supple Resp Effort & Inspection: normal respiratory effort and able to speak in complete sentences Auscultation: clear to auscultation bilaterally Cardio Rate: regular rate Rhythm: regular rhythm Heart sounds: S1 normal heart sound present and S2 normal heart sound present GI Palpation (GI): Soft to palpation and nontender Auscultation: normoactive bowel sounds General: Yes no CVA tenderness Back/Spine/Pelvis Back: no CVA tenderness Skin General skin exam: elasticity normal and turgor normal Neuro General: oriented to person, oriented to place, oriented to time, patient oriented x3, moves all extremities, no focal motor deficits and CN's II-XI intact bilaterally Cranial nerves: Yes Equal, round and reactive pupils present Cognition (Neuro): normal cognition Extrem General: Yes full ROM, Yes no pedal edema and Yes no calf tenderness Right upper extremity: elbow/forearm (mild erythema with linear scabs, no warmth, 2+ radial pulse) Left upper extremity: elbow/forearm (mild erythema with linear scabs, no warmth, 2+ radial pulse) Psych Mental Status: mental status grossly normal Affect: normal affect Thought process: Normal thought process present Medical Decision Making Medical Decision Making [facility] Narrative: Patient is a 52-year-old male with history of IV drug use presenting to the emergency department with complaint of bilateral forearm scabs, redness and pain for the past several weeks. On exam patient is awake, A+Ox3, normotensive, not tachycardic, afebrile, normal neurological exam without focal deficits, physical exam findings as above. Given reported symptoms and physical exam findings, initial differential includes cellulitis, abscess. Unlikely sepsis or bacteremia. Labs notable for mild leukocytosis, normal lactic, mildly elevated LFTs, no significant electrolyte abnormalities. Blood cultures pending. Given physical exam findings, feel patient is clinically stable for discharge home on PO antibiotics. Advised patient he will be contacted with any positive results on blood cultures. Discussed with patient the importance of completing full course of antibiotics as prescribed. Prescribe 7 day course of doxycycline and cephalexin. Advised patient to assess arms daily for signs of worsening infection and return if these occur. Other return precautions discussed at bedside. Patient verbalized understanding of and agreement plan. Differential Diagnosis Differential Diagnoses: The differential diagnosis associated with the presentation includes As per MDM. Admission/Observation Consideration of admission/observation: Escalation of care including admission/observation considered Patient would have been admitted had he met sepsis criteria. Lab Data [facility] Lab Attestation statement: I reviewed the patient's lab results. As per MDM. 05/06/23 03:05 05/06/23 02:59 Labs: Lab Results 05/06/23 05/06/23 05/06/23 Range/Units 02:59 03:01 03:05 WBC 11.9 H (4.8-10.8) X10*3/uL RBC 4.57 L (4.60-5.80) X10*6/uL Hgb 14.3 (14.0-18.0) g/dl Hct 42.5 (42.0-52.0) % MCV 93.0 (80.0-98.0) fL MCH 31.3 (27.0-33.0) pg MCHC 33.6 (31.0-36.0) g/dl RDW 12.9 (11.0-16.0) % Plt Count 319 (160-400) X10*3/uL MPV 9.5 (9.4-12.4) fL Immature Gran % (Auto) 1.0 H (0.0-0.4) % Neut % (Auto) 53.3 (45-73) % Lymph % (Auto) 28.2 (20-40) % [place] % (Auto) 12.0 H (2-11) % Eos % (Auto) 5.0 H (0-4) % Baso % (Auto) 0.5 (0-2) % Lymph # (Auto) 3.4 (1.2-4.9) X10*3/uL [place] # (Auto) 1.4 H (0.1-1.2) X10*3/uL Eos # (Auto) 0.6 H (0.0-0.4) X10*3/uL Baso # (Auto) 0.1 (0.0-0.2) X10*3/uL Abs Immat Gran (auto) 0.12 H (0.00-0.03) X10*3/uL Absolute Neuts (auto) 6.3 (2.0-8.3) x10*3/uL Absolute Nucleated RBC 0.000 (0.0-0.012) X10*3/uL Nucleated RBC % (auto) 0.0 (0.0-0.2) /100WBC Sodium 136 (135-145) mmol/L Potassium 4.2 (3.3-5.1) mmol/L Chloride 103 (96-108) mmol/L Carbon Dioxide 25 (22-29) mmol/L Anion Gap 12 (12-20) BUN 22 H (9-16) mg/dL Creatinine 0.86 (0.5-1.4) mg/dL Estim Creat Clear Calc 101.6 Estimated GFR > 60 Random Glucose 103 (60-115) mg/dL Lactic Acid 1.0 (0.5-2.0) mmol/L Calcium 9.3 (8.4-10.2) mg/dL Total Bilirubin 0.2 (0.0-1.0) mg/dL AST 39 H (5-37) U/L ALT 56 H (0-40) U/L Alkaline Phosphatase 77 (39-117) U/L Total Protein 7.9 (6.5-8.0) g/dL Albumin 3.8 (3.5-5.0) g/dL External Record Review External record reviewed: Inpatient record, Office record and Outpatient record Prescription Management I considered prescription management with: Antibiotic Chronic Conditions Patient?s care impacted by: Other (IVDU) Discharge Plan Discharge Clinical Impression: Cellulitis of arm, left, Cellulitis of arm, right Patient Disposition: Home, Self-Care Instructions: Cephalexin (By mouth), Doxycycline (By mouth), Cellulitis (DC) Additional Instructions: You have been evaluated in the emergency department today for a skin infection, also known as cellulitis, to your arms. Please take your prescribed antibiotics as directed for the full course of the medication. You can use Tylenol or ibuprofen per package instructions every 6 hours as needed for pain. If necessary, you can alternate these medications so that you can take one medication every 3 hours. For instance, at noon take ibuprofen, then at 3:00 p.m. take Tylenol, then at 6:00 p.m. take ibuprofen. Please schedule an appointment for follow-up with your primary care physician as soon as possible. You had blood cultures drawn today which are not resulted yet. You will be contacted with any positive results. Please assess your arms daily for signs of worsening infection. Return to the emergency department if you experience recurrent vomiting, fevers greater than 100.4? F, increasing area of redness, warmth around the area, foul-smelling discharge from the area, increased tenderness around the area, or any other concerning symptoms. Prescriptions: New doxycycline hyclate 100 mg capsule 100 mg PO BID Qty: 14 0RF cephalexin 500 mg capsule 500 mg PO QID Qty: 28 0RF No Action cephalexin 500 mg capsule 500 mg PO QID 7 Days Qty: 28 0RF doxycycline hyclate 100 mg capsule 100 mg PO BID 7 Days Qty: 14 0RF cephalexin 500 mg capsule 500 mg PO QID 7 Days Qty: 28 0RF doxycycline hyclate 100 mg tablet 100 mg PO BID 7 Days Qty: 14 0RF cephalexin 500 mg capsule 500 mg PO Q6H 7 Days Qty: 28 0RF doxycycline hyclate 100 mg tablet 100 mg PO BID 7 Days Qty: 14 0RF cephalexin 500 mg capsule 500 mg PO QID 7 Days Qty: 28 0RF doxycycline hyclate 100 mg capsule 100 mg PO BID 7 Days Qty: 14 0RF
== END 2023-05-06 07:01 | disposition home or self-care (01) ==
PROVIDERS: Emergency Provider Emergency Medicine Emergency Medical Services; PCP Internal Medicine
DX: L03.114 Cellulitis of left upper limb (principal); Z79.899 Other long term (current) drug therapy
CPT/HCPCS: 36415; 80053; 83605; 85025; 87040; 99283; 99284

== ENCOUNTER 2023-08-19 13:17 | Emergency (ER) | payer OTHER, SELFPAY ==
--- NOTE | 2023-08-19 13:21 | ED_ITS ---
HPI - General Adult General Chief complaint: Skin/Abscess/Foreign Body Stated complaint: Blood poisoning? Related Data Previous Rx's ?Medication ?Instructions ?Recorded cephalexin 500 mg capsule 500 mg PO QID 7 days #28 caps 03/31/22 doxycycline hyclate 100 mg tablet 100 mg PO BID 7 days #14 tabs 03/31/22 cephalexin 500 mg capsule 500 mg PO QID 7 days #28 caps 04/23/22 doxycycline hyclate 100 mg capsule 100 mg PO BID 7 days #14 caps 04/23/22 cephalexin 500 mg capsule 500 mg PO Q6H 7 days #28 caps 09/17/22 doxycycline hyclate 100 mg tablet 100 mg PO BID 7 days #14 tabs 09/17/22 cephalexin 500 mg capsule 500 mg PO QID 7 days #28 caps 10/14/22 doxycycline hyclate 100 mg capsule 100 mg PO BID 7 days #14 caps 10/14/22 cephalexin 500 mg capsule 500 mg PO QID #28 caps 05/06/23 doxycycline hyclate 100 mg capsule 100 mg PO BID #14 [facility] 05/06/23 Allergies Allergy/AdvReac Type Severity Reaction Status Date / Time No Known Allergies Allergy Verified 09/17/22 10:39 [facility] Social History Social History Substance Use Type: Crack/Cocaine and Heroin Advance Directives: No Advance Directives Information Provided: Yes Physical Exam ED Vital Signs: Vital Signs - 24 hr 08/19/23 13:22 Temperature 97.4 F Pulse Rate 73 Respiratory Rate 16 Blood Pressure 143/86 H Pulse Oximetry 99 Oxygen Delivery Method Room Air BMI result Body Mass Index 25.1 Course Course Course Narrative: This is a rapid medical exam: Additional HPI, ROS, PE not included below will be deferred to primary provider. Patient is a 52-year-old male presenting to the ED with complaint of bilateral arm redness with drainage. Reports night sweats as well. Admits to injecting into both arms. Symptoms for past 2-3 weeks. Plan: labs including cultures Medical Decision Making Lab Data 08/19/23 13:37 08/19/23 13:37 Labs: Lab Results 08/19/23 Range/Units 13:37 WBC 10.3 (4.8-10.8) X10*3/uL RBC 4.99 (4.60-5.80) X10*6/uL Hgb 15.5 (14.0-18.0) g/dl Hct 45.9 (42.0-52.0) % MCV 92.0 (80.0-98.0) fL MCH 31.1 (27.0-33.0) pg MCHC 33.8 (31.0-36.0) g/dl RDW 12.9 (11.0-16.0) % Plt Count 296 (160-400) X10*3/uL MPV 9.3 L (9.4-12.4) fL Immature Gran % (Auto) 0.4 (0.0-0.4) % Neut % (Auto) 79.2 H (45-73) % Lymph % (Auto) 12.3 L (20-40) % [place] % (Auto) 5.9 (2-11) % Eos % (Auto) 1.8 (0-4) % Baso % (Auto) 0.4 (0-2) % Lymph # (Auto) 1.3 (1.2-4.9) X10*3/uL [place] # (Auto) 0.6 (0.1-1.2) X10*3/uL Eos # (Auto) 0.2 (0.0-0.4) X10*3/uL Baso # (Auto) 0.0 (0.0-0.2) X10*3/uL Abs Immat Gran (auto) 0.04 H (0.00-0.03) X10*3/uL Absolute Neuts (auto) 8.2 (2.0-8.3) x10*3/uL Absolute Nucleated RBC 0.000 (0.0-0.012) X10*3/uL Nucleated RBC % (auto) 0.0 (0.0-0.2) /100WBC Sodium 140 (135-145) mmol/L Potassium 4.4 (3.3-5.1) mmol/L Chloride 106 (96-108) mmol/L Carbon Dioxide 26 (22-29) mmol/L Anion Gap 12 (12-20) BUN 17 H (9-16) mg/dL Creatinine 0.93 (0.5-1.4) mg/dL Estim Creat Clear Calc 93.9 Estimated GFR > 60 Random Glucose 187 H (60-115) mg/dL Lactic Acid 2.0 (0.5-2.0) mmol/L Calcium 9.4 (8.4-10.2) mg/dL Total Bilirubin 0.2 (0.0-1.0) mg/dL AST 40 H (5-37) U/L ALT 64 H (0-40) U/L Alkaline Phosphatase 81 (39-117) U/L Total Protein 8.3 H (6.5-8.0) g/dL Albumin 4.0 (3.5-5.0) g/dL Discharge Plan Discharge Clinical Impression: Diagnosis unknown Patient Disposition: Left W/O Completing Treatment Prescriptions: No Action cephalexin 500 mg capsule 500 mg PO QID 7 Days Qty: 28 0RF doxycycline hyclate 100 mg capsule 100 mg PO BID 7 Days Qty: 14 0RF cephalexin 500 mg capsule 500 mg PO QID 7 Days Qty: 28 0RF doxycycline hyclate 100 mg tablet 100 mg PO BID 7 Days Qty: 14 0RF cephalexin 500 mg capsule 500 mg PO Q6H 7 Days Qty: 28 0RF doxycycline hyclate 100 mg tablet 100 mg PO BID 7 Days Qty: 14 0RF cephalexin 500 mg capsule 500 mg PO QID 7 Days Qty: 28 0RF doxycycline hyclate 100 mg capsule 100 mg PO BID 7 Days Qty: 14 0RF doxycycline hyclate 100 mg capsule 100 mg PO BID Qty: 14 0RF cephalexin 500 mg capsule 500 mg PO QID Qty: 28 0RF Discharge Date/Time: 08/19/23 23:47
[2023-08-19 13:22] VITALS: BP 143/86; PULSE 73; RESP 16; TEMP 36.3; O2SAT 99; BMI 25.1
[2023-08-19 13:43] LABS: MANUAL DIFF FLAG NO
[2023-08-19 13:45] LABS: Basophils Percent Auto 0.4 % (0-2); Eosinophils Absolute Auto 0.2 X10*3/uL (0.0-0.4); Eosinophils Percent Auto 1.8 % (0-4); Hematocrit 45.9 % (42.0-52.0); Hemoglobin 15.5 g/dl (14.0-18.0); Imm Gran Abs Auto 0.04 X10*3/uL (0.00-0.03); Imm Gran Pct Auto 0.4 % (0.0-0.4); Lymphocytes Absolute Auto 1.3 X10*3/uL (1.2-4.9); Lymphocytes Percent Auto 12.3 % (20-40); Mean Corpuscular HGB Conc 33.8 g/dl (31.0-36.0); Mean Corpuscular Hemoglobin 31.1 pg (27.0-33.0); Mean Platelet Volume 9.3 fL (9.4-12.4); Monocytes Absolute Auto 0.6 X10*3/uL (0.1-1.2); Monocytes Percent Auto 5.9 % (2-11); Neutrophils Absolute Auto 8.2 x10*3/uL (2.0-8.3); Neutrophils Percent Auto 79.2 % (45-73); Platelet Count 296 X10*3/uL (160-400); Red Blood Count 4.99 X10*6/uL (4.60-5.80); Red Cell Distribution Width 12.9 % (11.0-16.0); White Blood Count 10.3 X10*3/uL (4.8-10.8)
[2023-08-19 13:58] LABS: Alanine Aminotransferase 64 U/L (0-40); Alkaline Phosphatase 81 U/L (39-117); Anion Gap 12 (12-20); Aspartate Amino Transferase 40 U/L (5-37); Bilirubin Total 0.2 mg/dL (0.0-1.0); Blood Urea Nitrogen 17 mg/dL (9-16); Calcium 9.4 mg/dL (8.4-10.2); Carbon Dioxide 26 mmol/L (22-29); Chloride 106 mmol/L (96-108); Creatinine Clr Calc Pharmacy 93.9; Estimated Glomerular Filt Rate > 60; Glucose Random 187 mg/dL (60-115); Potassium 4.4 mmol/L (3.3-5.1); Sodium 140 mmol/L (135-145); Total Protein 8.3 g/dL (6.5-8.0)
== END 2023-08-19 23:47 | disposition left against medical advice (07) ==
PROVIDERS: Registered Nurse Emergency; Emergency Provider Emergency Medicine
DX: L03.113 Cellulitis of right upper limb (principal); L03.114 Cellulitis of left upper limb; Z79.899 Other long term (current) drug therapy
CPT/HCPCS: 36415; 80053; 83605; 85025; 87040; 99281; 99283

== ENCOUNTER 2023-11-29 14:34 | Inpatient (IN) | payer MEDICAID, SELFPAY ==
--- NOTE | ~2023-11-29 | XR_ITS ---
EXAMINATION: XR HAND/WRIST, LEFT CLINICAL INFORMATION: Wound, infection, evaluate for osteomyelitis. COMPARISON: None TECHNIQUE: PA, lateral, and oblique views of the left hand and wrist. FINDINGS: Subtle focal cortical lucency and irregularity along the medial and lateral aspect of the distal third of the proximal phalanx of the second digit. Additional small osseous protrusion along the dorsal surface of the distal phalanx of the second digit. Significant soft tissue swelling involving the radial aspect of the hand around the first and second digits/metacarpal. No unexpected radiopaque foreign bodies. Chronic appearing deformity of the third metacarpal. XR/XR hand wrist LT IMPRESSION: 1. Subtle cortical irregularity and lucency along the medial and lateral aspect of the distal third of the proximal phalanx of the second digit. Findings might be posttraumatic or infectious in nature, osteomyelitis cannot be entirely excluded. Further evaluation with targeted MRI as clinically warranted. 2. Small osseous protrusion along the dorsal surface of the distal phalanx of the second digit. This could represent sequela of an avulsion fracture or degenerative changes. Recommend correlation with point tenderness. 3. Soft tissue swelling predominantly around the first and second digits/metacarpals.
[2023-11-29 14:43] VITALS: BP 146/69; PULSE 64; RESP 18; TEMP 36.6; O2SAT 98; BMI 25.1
--- NOTE | 2023-11-29 14:45 | ED_ITS ---
<Statement entered by Nayana Reyez MD - 04/19/24 19:29> reviewed HPI - General Adult General Chief complaint: Skin/Abscess/Foreign Body Stated complaint: medical clearance Time Seen by Provider: 11/29/23 15:00 Related Data Home Medications ?Medication ?Instructions ?Recorded ?Confirmed methadone 10 mg tablet 60 mg PO DAILY 11/29/23 11/30/23 Previous Rx's ?Medication ?Instructions ?Recorded amoxicillin 875 mg-potassium 1 tab PO BID #14 tabs 12/02/23 clavulanate 125 mg tablet doxycycline monohydrate 100 mg 100 mg PO BID #14 caps 12/02/23 capsule cephalexin 500 mg capsule 500 mg PO QID #40 caps 03/22/24 sulfamethoxazole 800 1 tab PO Q12H #20 tabs 03/22/24 mg-trimethoprim 160 mg tablet (Bactrim DS) Allergies Allergy/AdvReac Type Severity Reaction Status Date / Time No Known Allergies Allergy Verified 03/22/24 14:25 Review of Systems 2 Constitutional: Constitutional: Reports no additional constitutional complaints, Denies chills, Denies fever(s) and Denies night sweats Eyes: Eyes: Reports no additional eye complaints, Denies blurry vision, Denies change in vision, Denies diplopia, Denies eye discharge, Denies loss of vision and Denies eye pain ENT: Denies dizziness Cardiovascular: Cardiovascular: Reports no additional cardiovascular complaints, Denies chest pain, Denies lightheadedness, Denies Loss of Consciousness and Denies dyspnea Respiratory: Respiratory: Reports no additional respiratory complaints and Denies dyspnea Gastrointestinal: Gastrointestinal: Reports no additional gastrointestinal complaints, Denies abdominal pain, Denies melena, Denies hematochezia, Denies change in bowel habits and Denies change in stool character Genitourinary: Genitourinary: Reports no additional male genitourinary complaints, Denies hematuria, Denies oliguria, Denies difficulty urinating, Denies dysuria, Denies urinary frequency, Denies urinary hesitancy, Denies urinary incontinence and Denies urinary urgency Musculoskeletal: Musculoskeletal: Reports no additional musculoskeletal complaints, Denies numbness and Denies tingling Comments: left hand swelling, redness, pain Neurologic: Denies dizziness, Denies loss of vision, Denies numbness and Denies tingling Psychiatric: Psychiatric: Reports no additional psychiatric complaints Endocrine: Endocrine: Reports no additional endocrine complaints Hematologic/Lymphatic: Hematologic/Lymphatic: Reports no additional hematologic/lymphatic complaints Allergic/Immunologic: Allergic/Immunologic: Reports no additional allergic/immunologic complaints [facility] Past Medical History Attestation statement: The following information was validated with the patient. Source: old records reviewed and nursing notes reviewed Medical History (Updated 03/23/24 @ 00:00 by Gabi Geiger) Active intravenous drug use Polysubstance use disorder Social History Social History Household Members: None Housing: Apartment Do you presently have visiting nurse or other home services: No Alcohol intake: current Alcohol intake frequency: a few times a week Patient Tobacco Use Status: Current everyday Tobacco user Tobacco use type: Cigarette Cigarette Packs Per Day: 1 Cigarettes Per Day: 20.0 Years Smoked: 30 Smoked in Last 30 Days: Yes e-Cigarette/Vaping Use: Never Used Use of substances other than those prescribed or required for medical reasons: Yes Substance Use Type: Crack/Cocaine Substance Use Frequency: Daily Last Used Substance: Just Prior to Admission Any prior treatment program specific to substance use: No Advance Directives: No Advance Directives Information Provided: No Do you have a plan to hurt others: No Plan Physical Exam ED Vital Signs: Vital Signs - 24 hr 11/29/23 14:43 Temperature 97.9 F Pulse Rate 64 Respiratory Rate 18 Blood Pressure 146/69 H Pulse Oximetry 98 Oxygen Delivery Method Room Air BMI result Body Mass Index 25.1 Const General: cooperative, no acute distress, alert and awake Nutritional Appearance: well nourished Orientation/consciousness: patient oriented x3 Limitations: no limitations [facility] Head: Yes normal to inspection and Yes atraumatic Ears: hearing grossly normal bilaterally and external ears normal General nose exam: Normal external nose present, no nasal discharge noted and no epistaxis Face and sinus: Yes normal facial exam, No abrasion and No laceration Mouth: Normal oral and palatal mucosa present, no drooling and no muffled voice Eyes General: appearance normal, both eyes and all related structures Periorbital: periorbital findings normal Eyelids: Yes eyelids normal Conjunctivae: conjunctivae normal Pupils: Equal, round and reactive pupils present EOM: EOMs intact bilaterally Neck Neck: Yes normal visual inspection, Yes full ROM and Yes no lymphadenopathy Chest Chest palpation & inspection: normal inspection of the chest Resp Effort & Inspection: normal respiratory effort and able to speak in complete sentences GI Inspection: Yes normal to inspection Neuro General: patient oriented x3 and moves all extremities Cranial nerves: Yes Equal, round and reactive pupils present Cognition (Neuro): normal cognition Extrem Other: decreased ROM of the 2nd digit General: Yes capillary refill normal Psych Appearance: grossly normal Mental Status: mental status grossly normal Affect: normal affect Attitude: cooperative Thought process: Normal thought process present Thought content: Normal thought content present Insight: Good insight present (Psych) Course Course Course Narrative: This is an RME performed by Kellie Dockery CNP: Additional HPI, ROS, PE not included below will be deferred to primary provider. Patient is a 52-year-old male who presents to the emergency department reports bilateral arm infections acute on chronic, injecting cocaine and heroin to the bilateral arms. He states that he is seeking detox at [facility] in [place], [place] but requires medical clearance first. He states that he recently completed a course of antibiotics approximately 1 month ago. His left hand is swollen erythematous and warm to the touch extending up the forearm. Admits to feeling generally fatigued. Denies fevers, chills, CP, SOB. Plan: Labs, XR Medications Administered Discontinued Medications Generic Name Dose Route Start Last Admin Trade Name Freq PRN Reason Stop Dose Admin Acetaminophen 650 mg 11/29/23 20:13 11/30/23 19:38 Acetaminophen 325 Mg Tablet PO 650 mg Q6H PRN Administration Pain, Mild (Pain Scale 1-3), fever or headache Piperacillin Sod/Tazobactam 50 mls @ 100 mls/hr 11/29/23 16:00 11/29/23 17:10 Sod 3.375 gm/ Sodium Chloride IV 11/29/23 16:29 Infused ONCE ONE Infusion Vancomycin HCl 2,000 mg in 500 mls @ 250 mls/hr 11/29/23 16:15 11/29/23 19:48 Vancomycin/Ns IV 11/29/23 18:14 Infused ONCE ONE Infusion Piperacillin Sod/Tazobactam 50 mls @ 100 mls/hr 11/29/23 22:30 12/02/23 10:53 Sod 3.375 gm/ Sodium Chloride IV Infused Q6H SADE Infusion Vancomycin HCl 1,000 mg/ 270 mls @ 270 mls/hr 11/30/23 08:00 11/30/23 08:10 Sodium Chloride IV Infused Q12H SADE Infusion Vancomycin HCl 1,250 mg/ 250 mls @ 166.667 mls/hr 11/30/23 20:00 12/01/23 09:49 Sodium Chloride IV Infused Q12H SADE Infusion Vancomycin HCl 1,000 mg/ 270 mls @ 270 mls/hr 12/01/23 20:00 12/02/23 09:11 Sodium Chloride IV Infused Q12H SADE Infusion Methadone HCl 30 mg 11/30/23 09:32 11/30/23 10:27 Methadone Hcl 20 Mg/2 Ml Oral.Conc PO 11/30/23 09:33 30 mg ONCE ONE Administration Methadone HCl 30 mg 11/30/23 13:39 11/30/23 13:46 Methadone Hcl 20 Mg/2 Ml Oral.Conc PO 11/30/23 13:40 30 mg ONCE ONE Administration Methadone HCl 60 mg 12/01/23 09:00 12/02/23 08:10 Methadone Hcl 20 Mg/2 Ml Oral.Conc PO 60 mg DAILY SADE Administration Sodium Chloride 3 ml 11/30/23 00:00 12/02/23 08:10 0.9 % Sodium Chloride Flush 3 Ml Syringe IVFLUSH 3 ml QSHIFT SADE Administration Medical Decision Making Medical Decision Making MDM Narrative: Patient is a 52 year old assigned male at with a history of IV drug use presenting to the emergency department today with left hand pain / swelling. Patient's physical exam was as noted in the physical exam portion of this note. Patient's blood work showed a mildly elevated ESR and CRP but were otherwise unremarkable. Patient's left hand x-ray showed evidence of possible osteomyelitis of the 2nd digit. I spoke to the orthopedic team who recommended medical admission with IV antibiotics and keeping him NPO after midnight for possible surgical intervention tomorrow. Patient's clinical presentation is not consistent with sepsis (@1715). Patient was given IV Zosyn and vancomycin. I spoke to the hospitalist team who agreed to admission. I explained my physical exam findings as well as all test results to the patient. I answered all questions asked by the patient. Patient verbalized agreement and understanding with this treatment plan and admission. Differential Diagnosis Differential Diagnoses: The differential diagnosis associated with the presentation includes Cellulitis Osteomyelitis IV drug use Admission/Observation Consideration of admission/observation: Escalation of care including admission/observation considered Patient admitted. 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 My interpretation of these results are in the MDM Rationale portion of this note. 12/02/23 08:38 12/02/23 08:38 Labs: Lab Results 11/29/23 11/29/23 11/29/23 Range/Units 15:15 15:43 16:11 WBC 9.9 (4.8-10.8) X10*3/uL RBC 4.57 L (4.60-5.80) X10*6/uL Hgb 14.2 (14.0-18.0) g/dl Hct 42.3 (42.0-52.0) % MCV 92.6 (80.0-98.0) fL MCH 31.1 (27.0-33.0) pg MCHC 33.6 (31.0-36.0) g/dl RDW 12.7 (11.0-16.0) % Plt Count 293 (160-400) X10*3/uL MPV 8.7 L (9.4-12.4) fL Immature Gran % (Auto) 0.3 (0.0-0.4) % Neut % (Auto) 71.2 (45-73) % Lymph % (Auto) 17.4 L (20-40) % [place] % (Auto) 8.8 (2-11) % Eos % (Auto) 1.9 (0-4) % Baso % (Auto) 0.4 (0-2) % Lymph # (Auto) 1.7 (1.2-4.9) X10*3/uL [place] # (Auto) 0.9 (0.1-1.2) X10*3/uL Eos # (Auto) 0.2 (0.0-0.4) X10*3/uL Baso # (Auto) 0.0 (0.0-0.2) X10*3/uL Abs Immat Gran (auto) 0.03 (0.00-0.03) X10*3/uL Absolute Neuts (auto) 7.0 (2.0-8.3) x10*3/uL Absolute Nucleated RBC 0.000 (0.0-0.012) X10*3/uL Nucleated RBC % (auto) 0.0 (0.0-0.2) /100WBC ESR 23 H (0-15) MM/HR Sodium 138 (135-145) mmol/L Potassium 3.8 (3.3-5.1) mmol/L Chloride 104 (96-108) mmol/L Carbon Dioxide 28 (22-29) mmol/L Anion Gap 10 L (12-20) BUN 12 (9-16) mg/dL Creatinine 0.89 (0.5-1.4) mg/dL Estim Creat Clear Calc 98.1 Estimated GFR > 60 Random Glucose 134 H (60-115) mg/dL Lactic Acid 1.8 (0.5-2.0) mmol/L Calcium 9.4 (8.4-10.2) mg/dL Total Bilirubin 0.4 (0.0-1.0) mg/dL AST 32 (5-37) U/L ALT 50 H (0-40) U/L Alkaline Phosphatase 85 (39-117) U/L C-Reactive Protein 0.73 H (< or = 0.50) mg/dL Total Protein 8.1 H (6.5-8.0) g/dL Albumin 3.9 (3.5-5.0) g/dL Urine Opiates Screen Not Detected (Not Detect) Ur Buprenorphine Scrn Not Detected (Not Detect) ng/mL Ur Oxycodone Screen Not Detected (Not Detect) ng/mL Urine Methadone Screen Positive H (Not Detect) ng/mL Urine Fentanyl Screen POSITIVE H (Not Detect) Ur Barbiturates Screen Not Detected (Not Detect) Ur Phencyclidine Scrn Not Detected (Not Detect) Ur Amphetamines Screen Not Detected (Not Detect) U Benzodiazepines Scrn Not Detected (Not Detect) Urine Cocaine Screen POSITIVE H (Not Detect) U Marijuana (THC) Screen POSITIVE H (Not Detect) Ethyl Alcohol < 10 mg/dL Independent Interpretation I performed an independent interpretation of an: Plain X-Ray Interpretation: My interpretation is in agreement with the radiologist's impression of this imaging study. - EXAMINATION: XR HAND/WRIST, LEFT CLINICAL INFORMATION: Wound, infection, evaluate for osteomyelitis. COMPARISON: None TECHNIQUE: PA, lateral, and oblique views of the left hand and wrist. FINDINGS: Subtle focal cortical lucency and irregularity along the medial and lateral aspect of the distal third of the proximal phalanx of the second digit. Additional small osseous protrusion along the dorsal surface of the distal phalanx of the second digit. Significant soft tissue swelling involving the radial aspect of the hand around the first and second digits/metacarpal. No unexpected radiopaque foreign bodies. Chronic appearing deformity of the third metacarpal. XR/XR hand wrist LT IMPRESSION: 1. Subtle cortical irregularity and lucency along the medial and lateral aspect of the distal third of the proximal phalanx of the second digit. Findings might be posttraumatic or infectious in nature, osteomyelitis cannot be entirely excluded. Further evaluation with targeted MRI as clinically warranted. 2. Small osseous protrusion along the dorsal surface of the distal phalanx of the second digit. This could represent sequela of an avulsion fracture or degenerative changes. Recommend correlation with point tenderness. 3. Soft tissue swelling predominantly around the first and second digits/metacarpals. Dictated By: Niharika Hermosillo Signed By: Electronically signed by Niharika Hermosillo 11/29/23 1533 Radiology Impression Discussion of test interpretation with radiology: I have reviewed the radiologist's reading. Critical Care Time Critical Care Time Critical Care Time: Yes Total Critical Care Time: 48 Attestation: I spent 48 minutes of Critical Care Time with this patient. This does not include time spent on separately reported billable procedures. Discharge Plan Discharge Clinical Impression: Cellulitis, Osteomyelitis, Active intravenous drug use Patient Disposition: Admitted As Inpatient Interventions: Admission Worksheet (ED) Last Done: 11/30/23 08:13 Discharge Date/Time: 11/30/23 09:41
--- NOTE | 2023-11-29 14:55 | PC.NURSE ---
pt to xray at this time.
--- NOTE | 2023-11-29 15:18 | PC.NURSE ---
labs obtained/sent to lab by Belly Ballot.
[2023-11-29 15:19] LABS: MANUAL DIFF FLAG NO
[2023-11-29 15:21] LABS: Basophils Percent Auto 0.4 % (0-2); Eosinophils Absolute Auto 0.2 X10*3/uL (0.0-0.4); Eosinophils Percent Auto 1.9 % (0-4); Hematocrit 42.3 % (42.0-52.0); Hemoglobin 14.2 g/dl (14.0-18.0); Imm Gran Abs Auto 0.03 X10*3/uL (0.00-0.03); Imm Gran Pct Auto 0.3 % (0.0-0.4); Lymphocytes Absolute Auto 1.7 X10*3/uL (1.2-4.9); Lymphocytes Percent Auto 17.4 % (20-40); Mean Corpuscular HGB Conc 33.6 g/dl (31.0-36.0); Mean Corpuscular Hemoglobin 31.1 pg (27.0-33.0); Mean Corpuscular Volume 92.6 fL (80.0-98.0); Mean Platelet Volume 8.7 fL (9.4-12.4); Monocytes Absolute Auto 0.9 X10*3/uL (0.1-1.2); Monocytes Percent Auto 8.8 % (2-11); Neutrophils Percent Auto 71.2 % (45-73); Platelet Count 293 X10*3/uL (160-400); Red Blood Count 4.57 X10*6/uL (4.60-5.80); Red Cell Distribution Width 12.7 % (11.0-16.0); White Blood Count 9.9 X10*3/uL (4.8-10.8)
[2023-11-29 15:40] LABS: Alanine Aminotransferase 50 U/L (0-40); Albumin Level 3.9 g/dL (3.5-5.0); Alkaline Phosphatase 85 U/L (39-117); Anion Gap 10 (12-20); Aspartate Amino Transferase 32 U/L (5-37); Bilirubin Total 0.4 mg/dL (0.0-1.0); Blood Urea Nitrogen 12 mg/dL (9-16); C Reactive Protein 0.73 mg/dL (< or = 0.50); Calcium 9.4 mg/dL (8.4-10.2); Carbon Dioxide 28 mmol/L (22-29); Chloride 104 mmol/L (96-108); Creatinine Clr Calc Pharmacy 98.1; Estimated Glomerular Filt Rate > 60; Ethanol < 10 mg/dL; Glucose Random 134 mg/dL (60-115); Potassium 3.8 mmol/L (3.3-5.1); Sodium 138 mmol/L (135-145); Total Protein 8.1 g/dL (6.5-8.0)
[2023-11-29 16:00] LABS: Amphetamine Screen Urine Not Detected (Not Detect); Barbiturates, Urine Not Detected (Not Detect); Benzodiazepines Screen Urine Not Detected (Not Detect); Buprenorphine Scr Not Detected (Not Detect); Cannabinoid Screen Urine POSITIVE (Not Detect); Cocaine Screen Urine POSITIVE (Not Detect); Fentanyl, urine POSITIVE (Not Detect); Methadone Screen, Urine Positive (Not Detect); Opiate Screen Urine Not Detected (Not Detect); Oxycodone Screen Urine Not Detected (Not Detect); Phencyclidine Screen Urine Not Detected (Not Detect)
[2023-11-29 16:05] LABS: Erythrocyte Sedimentation Rate 23 MM/HR (0-15)
[2023-11-29] MEDS: Piperacillin Sodium/Tazobactam 3.375 GM in 0.9 % Sodium Chloride 50 ML IV ×2 (16:30→22:38)
--- NOTE | 2023-11-29 16:30 | PC.NURSE ---
20gIV placed in the right wrist - labs obtained/sent to lab. abx administered per provider order.
[2023-11-29 16:35] LABS: Lactic Acid 1.8 mmol/L (0.5-2.0)
[2023-11-29] MEDS: vancomycin/NS 2,000 MG/500 ML PLAST..BAG 250 MG IV (17:10)
--- NOTE | 2023-11-29 17:13 | PC.NURSE ---
abx administered per provider order. pt continues to rest in no apparent distress. respirations even/unlabored. pt aware of plan of care in regards to being admitted. plan of care ongoing. call springer placed within reach.
--- NOTE | 2023-11-29 18:05 | PM.IMHP ---
History of Present Illness Date of Service: 11/29/23 Attending physician on admission: Polly Jenkins Chief Complaint: Left hand pain Pt is a 52-year-old male with a PMH significant for?polysubstance use disorder with IVDU who presents to the ED with?left hand swelling, redness, and pain x1 week. Patient reports needing medical clearance in order to go into a detox program at [facility] in [place], [place]. Reports he has been injecting both heroin and cocaine into arms and hands with last use this morning. First began noticing swelling and pain in left hand approximately one week ago. Has had some purulent, milky discharge but no noxious smell. Also reports fatigue and subjective fever and chills. Denies nausea, vomiting, abdominal pain. No chest pain/pressure, palpitations. Denies shortness of breath or difficulty breathing. States is on methadone 30mg. Denies any other significant PMH, the patient has not been seen by a PCP for many years. In the ED pt was hypertensive up to 146/69, vitals otherwise stable and WNL. Labs were largely reassuring and significant for ESR mildly elevated at 23, CRP 0.73, and ALT 50. No leukocytosis. Stable H& H. No significant electrolyte abnormalities. Lactic acid WNL at 1.8. Renal function WNL. Tox screen positive for methadone, fentanyl, cocaine, and marijuana. X-ray of left hand showed subtle cortical irregularity and lucency on distal 3rd and proximal phalanx of 2nd digit, osteomyelitis not entirely excluded. Also found small osseous protrusion along dorsal surface of distal phalanx of 2nd digit, possibly representing avulsion fracture or degenerative changes. Pt was treated with vancomycin and Zosyn. Pt will be admitted to the hospital for treatment and further evaluation of left hand cellulitis secondary to IVDU that will require IV antibiotics. Review of Systems Review of Systems: Left hand redness, pain, swelling Purulent discharge without noxious odor Subjective fever and chills Denies chest pain/pressure, palpitations No shortness a breath or difficulty breathing Denies nausea, vomiting, diarrhea, abdominal pain PMFSH Medical History (Updated 11/29/23 @ 20:07 by NASREEN Alvarenga) Polysubstance use disorder Social History Substance Use Type: Crack/Cocaine and Heroin Advance Directives: No Advance Directives Information Provided: No Do you have a plan to hurt others: No Plan Meds Allergies Allergy/AdvReac Type Severity Reaction Status Date / Time No Known Allergies Allergy Verified 11/29/23 14:48 Active Medications: Current Medications Vancomycin HCl (Vancomycin/Ns) 2,000 mg in 500 mls @ 250 mls/hr IV ONCE ONE Stop: 11/29/23 18:14 Last Admin: 11/29/23 17:10 Dose: 250 mls/hr Home Medications ?Medication ?Instructions ?Recorded ?Confirmed ?Last Taken ?Type No Known Home Meds 11/29/23 11/29/23 Unknown History Physical Exam Vital Signs and Narrative: Vital Signs: Last Vital Signs Temp 97.9 F 11/29/23 14:43 Pulse 64 11/29/23 14:43 Resp 18 11/29/23 14:43 BP 146/69 H 11/29/23 14:43 Pulse Ox 98 11/29/23 14:43 O2 Del Method Room Air 11/29/23 14:43 BMI result Body Mass Index 25.1 General: AOx3, no acute distress Resp: CTA bilaterally CVS: S1, S2, RRR GI: +BS, NT, no distention Skin: Warm, dry Neuro: Cranial nerves II-XII grossly intact bilaterally. Motor grossly intact bilaterally Extremities: Left hand with swelling, warmth, erythema, and scant amount of discharge on lateral aspect 1st digit. As pictured below Psych: Appropriate affect Results Labs 11/29/23 15:15 11/29/23 15:15 Labs: Laboratory Results - last 24 hr 11/29/23 11/29/23 11/29/23 15:15 15:43 16:11 MCV 92.6 MCH 31.1 MCHC 33.6 RDW 12.7 Plt Count 293 MPV 8.7 L Immature Gran % (Auto) 0.3 Neut % (Auto) 71.2 Lymph % (Auto) 17.4 L [place] % (Auto) 8.8 Eos % (Auto) 1.9 Baso % (Auto) 0.4 Lymph # (Auto) 1.7 [place] # (Auto) 0.9 Eos # (Auto) 0.2 Baso # (Auto) 0.0 Abs Immat Gran (auto) 0.03 Absolute Neuts (auto) 7.0 Absolute Nucleated RBC 0.000 Nucleated RBC % (auto) 0.0 ESR 23 H Anion Gap 10 L Estim Creat Clear Calc 98.1 Estimated GFR > 60 Random Glucose 134 H Lactic Acid 1.8 Calcium 9.4 Total Bilirubin 0.4 AST 32 ALT 50 H Alkaline Phosphatase 85 C-Reactive Protein 0.73 H Total Protein 8.1 H Albumin 3.9 Urine Opiates Screen Not Detected Ur Buprenorphine Scrn Not Detected Ur Oxycodone Screen Not Detected Urine Methadone Screen Positive H Urine Fentanyl Screen POSITIVE H Ur Barbiturates Screen Not Detected Ur Phencyclidine Scrn Not Detected Ur Amphetamines Screen Not Detected U Benzodiazepines Scrn Not Detected Urine Cocaine Screen POSITIVE H U Marijuana (THC) Screen POSITIVE H Ethyl Alcohol < 10 Imaging Radiologist's Impressions: Impressions Hand/Wrist X-Ray 11/29/23 15:06 IMPRESSION: 1. Subtle cortical irregularity and lucency along the medial and lateral aspect of the distal third of the proximal phalanx of the second digit. Findings might be posttraumatic or infectious in nature, osteomyelitis cannot be entirely excluded. Further evaluation with targeted MRI as clinically warranted. 2. Small osseous protrusion along the dorsal surface of the distal phalanx of the second digit. This could represent sequela of an avulsion fracture or degenerative changes. Recommend correlation with point tenderness. 3. Soft tissue swelling predominantly around the first and second digits/metacarpals. Assessment and Plan (1) Cellulitis: Qualifiers: Site of cellulitis: extremity Site of cellulitis of extremity: upper extremity Laterality: left Qualified Code(s): L03.114 - Cellulitis of left upper limb Status: Acute Plan Pt is a 52-year-old male with a PMH significant for?polysubstance use disorder with IVDU who presents to the ED with?left hand swelling, redness, and pain x1 week. Patient reports needing medical clearance in order to go into a detox program at [facility] in [place], [place]. Pt will be admitted to the hospital for treatment and further evaluation of left hand cellulitis secondary to IVDU that will require IV antibiotics. Left hand cellulitis Pt with swelling, erythema, pain, purulent discharge of left hand at site of IVDU Does not meet sepsis criteria: No leukocytosis, tachycardia, tachypnea, or fever; lactic acid WNL Treat with vancomycin and Zosyn, started 11/29/2023 Orthopedic consult NPO after midnight for likely surgical washout in the morning Follow cultures IVDU Reports injecting heroin and cocaine Attempting medical clearance for admission at [facility] in [place], [place] Reports methadone dose of 60mg daily, continue once verified Addiction medicine consult Full Code Attending:?Dr. Kong DVT Prophylaxis: Pneumatic compression due to likely surgical procedure in the morning Pt will require a hospitalization of at least two nights for treatment of?left hand cellulitis secondary to IVDU that will require IV antibiotics, specialist consultation with Orthopedics, and likely surgical washout. Quality Stroke Does the patient have a stroke diagnosis?: No VTE Prior VTE?: No VTE Risk Level:: Medical - moderate - high VTE Device Contraindication: N/A - Device Ordered VTE Drug Contraindication: Treatment Not Indicated
[2023-11-29 18:27] VITALS: BP 145/76; PULSE 58; RESP 16; TEMP 36.8; O2SAT 96
--- NOTE | 2023-11-29 18:30 | PHA.MEDREC ---
Addendum entered by Libby Dewey 11/29/23 21:23: Patient told nurse he is on methadone. So, I went back down to talk to patient again and he now states he is on methadone 60 mg daily from [facility] in [place]. Original Note: Pharmacy Consult ? Medication Reconciliation Pharmacy has completed the medication reconciliation. Patient states he is not on any medication.
--- NOTE | 2023-11-29 19:32 | PC.NURSE ---
hospitalist bedside speaking w/ pt at this time. plan of care ongoing.
--- NOTE | 2023-11-29 20:37 | PHA.PROG ---
Admission Date/Time: November 29, 2023 20:13 Indication: Skin/Soft Tissue Infection Weight in k kg Adjusted body weight in Kg: Gordon body weight in Kg: Obesity Dosing Indication % IBW: Serum Creatinine - Last 168 Hours 11/29/23 15:15 Creatinine 0.89 Estimated CrCl and GFR - Last 168 Hours 11/29/23 15:15 Estim Creat Clear Calc 98.1 Estimated GFR > 60 Vancomycin Loading Dose: 2000mg x 1 Current Vancomycin Dosing Regimen: 1000mg Q12H Vancomycin Monitoring using AUC goal of 400 - 600 range with trough as surrogate marker: Projected AUC of 488 mg/L and Trough of 15.1 mg/L Date and Time for next Vancomycin Level to be drawn: 11/29 @ 1800 Pharmacist Comments on Vancomycin Plan: Will begin regimen on 11/29 @ 0800 to allow for easier monitoring. Loading dose already given. Vancomycin dosing will take advantage of [employer] as a clinical decision support tool that uses Bayesian modeling to calculate individual patient's pharmacokinetic parameters and forecast the patient's drug concentration time course with the target goal AUC 24 range of 400 - 600 mg/L/hr.
--- NOTE | 2023-11-29 22:42 | PC.NURSE ---
abx administered per provider order.
[2023-11-29 22:51] VITALS: PULSE 50; RESP 20; TEMP 36.8; O2SAT 96
[2023-11-30 02:57] VITALS: BP 121/64; PULSE 53; RESP 16; TEMP 36.7; O2SAT 96
[2023-11-30] MEDS: 0.9 % Sodium Chloride Flush 3 ML SYRINGE IVFLUSH ×2 (03:17→16:03)
[2023-11-30] MEDS: Piperacillin Sodium/Tazobactam 3.375 GM in 0.9 % Sodium Chloride 50 ML IV ×4 (04:38→22:44)
[2023-11-30 06:29] VITALS: BP 136/72; PULSE 57; RESP 12; TEMP 36.8; O2SAT 99
[2023-11-30] MEDS: vancomycin HCL 1,000 MG in 0.9 % Sodium Chloride 250 ML 270 MG IV (07:06)
[2023-11-30 10:03] VITALS: BMI 25.1
[2023-11-30 10:11] VITALS: BP 138/66; PULSE 48; RESP 18; TEMP 37.2; O2SAT 98
[2023-11-30] MEDS: methADONE HCl 20 MG/2 ML ORAL.CONC 30 MG PO ×2 (10:27→13:46)
[2023-11-30 10:33] LABS: Creatinine Clr Calc Pharmacy 105.2; Estimated Glomerular Filt Rate > 60
--- NOTE | 2023-11-30 11:12 | HE.PHANOTE ---
METHADONE received patients methadone clinic verification from, patient gets methadone for [facility] dose of 60 mg last dosed 11/29/23
--- NOTE | 2023-11-30 11:54 | MHC.CM.PN ---
PATIENT REPORTS HE LIVES IN A HOME ALONE. FUNCTIONALLY INDEPENDENT. DENIES USE OF DME OR HOME SERVICES. METHADONE THROUGH [facility]. PT REPORTS PCP IS THROUGH [facility] IN [place], UNABLE TO RECALL NAME OF PROVIDER. NO HCP. CM PROVIDED EDUCATION AND OFFERED ASSISTANCE. PT DECLINED. DP: PENDING ADDICTION CONSULT. PATIENT REPORTS GOAL IS DETOX @ [facility] IN [facility]. STATES HE HAS BEEN ACCEPTED THERE ONCE MEDICALLY CLEARED. FAMILY TO TRANSPORT. CM WILL CONTINUE TO FOLLOW.
--- NOTE | 2023-11-30 11:55 | HO.PM.IMPN ---
Subjective Subjective Date of Service: 11/30/23 Interval History: seen and evaluated this morning asking for methadone reports improvement in swelling no fever or chills Review of Systems Review of Systems: Yes all other systems are reviewed and are negative Physical Exam Vital Signs: Vital Signs: Last Vital Signs Temp 99.0 F 11/30/23 10:11 Pulse 48 L 11/30/23 10:11 Resp 18 11/30/23 10:11 BP 138/66 11/30/23 10:11 Pulse Ox 98 11/30/23 10:11 O2 Del Method Room Air 11/30/23 10:11 BMI result Body Mass Index 25.1 Const: Other: Constitutional : Awake, interactive, not in distress Neck : Normal inspection, Supple Cardiovascular : RRR, no JVP, no lower extremity edema Respiratory : good bilateral air entry, no crackles, wheezes or rhonchi Gastrointestinal: soft, lax, Normal bowel sounds, Non tender Skin : Warm, Dry, multiple cut wounds, surgical morrison on both arms, Left hand swollen, warm, less tender with no significant amount of drainage. able to make a fist and release it slowly. Neurological : Alert & oriented x3, No focal deficit Objective Data Active Medications Acetaminophen (Acetaminophen 325 Mg Tablet) 650 mg PO Q6H PRN PRN Reason: Pain, Mild (Pain Scale 1-3), fever or headache Benzonatate (Benzonatate 100 Mg Capsule) 100 mg PO TID PRN PRN Reason: Cough Calcium Carbonate (Calcium Carbonate 750 Mg Tab.Chew) 750 mg PO Q4H PRN PRN Reason: Heartburn Piperacillin Sod/Tazobactam (Sod 3.375 gm/ Sodium Chloride) 50 mls @ 100 mls/hr IV Q6H [facility] Last Infusion: 11/30/23 11:02 Dose: Infused Documented By: JANE Vancomycin HCl 1,000 mg/ (Sodium Chloride) 270 mls @ 270 mls/hr IV Q12H [facility] Last Infusion: 11/30/23 08:10 Dose: Infused Documented By: DARRIN Magnesium Hydroxide (Milk Of Magnesia 30 Ml Oral.Susp) 30 ml PO DAILY PRN PRN Reason: Constipation Melatonin (Melatonin 3 Mg Tablet) 6 mg PO BEDTIME PRN PRN Reason: Insomnia Pharmacy Consult (Consult Rx Vancomycin Dosing) 1 each MISCELLANE DAILY PRN PRN Reason: Consult order Sodium Chloride (0.9 % Sodium Chloride Flush 3 Ml Syringe) 3 ml IVFLUSH QSHIFT [facility] Last Admin: 11/30/23 07:31 Dose: Not Given Documented By: DARRIN Non-Admin Reason: IV Running Labs 11/29/23 15:15 11/30/23 09:53 Labs: Laboratory Results - last 24 hr 11/29/23 11/29/23 11/29/23 15:15 15:43 16:11 MCV 92.6 MCH 31.1 MCHC 33.6 RDW 12.7 Plt Count 293 MPV 8.7 L Immature Gran % (Auto) 0.3 Neut % (Auto) 71.2 Lymph % (Auto) 17.4 L Keith % (Auto) 8.8 Eos % (Auto) 1.9 Baso % (Auto) 0.4 Lymph # (Auto) 1.7 Keith # (Auto) 0.9 Eos # (Auto) 0.2 Baso # (Auto) 0.0 Abs Immat Gran (auto) 0.03 Absolute Neuts (auto) 7.0 Absolute Nucleated RBC 0.000 Nucleated RBC % (auto) 0.0 ESR 23 H Anion Gap 10 L Estim Creat Clear Calc 98.1 Estimated GFR > 60 Random Glucose 134 H Lactic Acid 1.8 Calcium 9.4 Total Bilirubin 0.4 AST 32 ALT 50 H Alkaline Phosphatase 85 C-Reactive Protein 0.73 H Total Protein 8.1 H Albumin 3.9 Urine Opiates Screen Not Detected Ur Buprenorphine Scrn Not Detected Ur Oxycodone Screen Not Detected Urine Methadone Screen Positive H Urine Fentanyl Screen POSITIVE H Ur Barbiturates Screen Not Detected Ur Phencyclidine Scrn Not Detected Ur Amphetamines Screen Not Detected U Benzodiazepines Scrn Not Detected Urine Cocaine Screen POSITIVE H U Marijuana (THC) Screen POSITIVE H Ethyl Alcohol < 10 11/30/23 09:53 MCV MCH MCHC RDW Plt Count MPV Immature Gran % (Auto) Neut % (Auto) Lymph % (Auto) Keith % (Auto) Eos % (Auto) Baso % (Auto) Lymph # (Auto) Keith # (Auto) Eos # (Auto) Baso # (Auto) Abs Immat Gran (auto) Absolute Neuts (auto) Absolute Nucleated RBC Nucleated RBC % (auto) ESR Anion Gap Estim Creat Clear Calc 105.2 Estimated GFR > 60 Random Glucose Lactic Acid Calcium Total Bilirubin AST ALT Alkaline Phosphatase C-Reactive Protein Total Protein Albumin Urine Opiates Screen Ur Buprenorphine Scrn Ur Oxycodone Screen Urine Methadone Screen Urine Fentanyl Screen Ur Barbiturates Screen Ur Phencyclidine Scrn Ur Amphetamines Screen U Benzodiazepines Scrn Urine Cocaine Screen U Marijuana (THC) Screen Ethyl Alcohol Assessment and Plan (1) Active intravenous drug use: Status: Acute (2) Cellulitis: Status: Acute Plan Pt is a 52-year-old male with a PMH significant for?polysubstance use disorder with IVDU who presents to the ED with?left hand swelling, redness, and pain x1 week. Patient reports needing medical clearance in order to go into a detox program at [facility] in [place], [place]. Pt will be admitted to the hospital for treatment and further evaluation of left hand cellulitis secondary to IVDU that will require IV antibiotics. Left hand cellulitis not septic pending cultures Continue vancomycin and Zosyn, started 11/29/2023 Orthopedic consult concern over OM, check with ID follow Vancomycin trough IVDU Reports injecting heroin and cocaine Attempting medical clearance for admission at [facility] in [place], [place] Reports methadone dose of 60mg daily Addiction medicine consult Full Code DVT Prophylaxis: Pneumatic compression Pt will require a hospitalization overnight for treatment of?left hand cellulitis secondary to IVDU that will require IV antibiotics, specialist consultation Quality Stroke Does the patient have a stroke diagnosis?: No VTE Prior VTE?: No VTE Risk Level:: Medical - moderate - high VTE Device Contraindication: N/A - Device Ordered VTE Drug Contraindication: Treatment Not Indicated
--- NOTE | 2023-11-30 11:56 | PM.CNOR ---
History of Present Illness HPI Consult date: 11/30/23 Chief complaint: Left hand cellulitis secondary to IVDU Narrative: Patient is a 52-year-old male who is admitted to the hospital for evaluation of infection of left hand. Patient previously presented to the emergency department for medical clearance to be enrolled in a detox facility, when significant erythema, edema, and multiple open areas were noted on the dorsal left hand. Patient was admitted to the hospital for IV antibiotics and further evaluation and treatment. Patient reports that this redness and swelling has been ongoing for approximately 1 week, worsening significantly over that time. Patient reports he regularly shoots cocaine and heroin into his left hand, and the last use was yesterday. Today, patient reports that he is feeling. Reports ?dull soreness? in his left hand, but nothing he would describe as pain. Patient also states that he no active drainage this time, but that open areas on his left hand were previously draining. No other acute at this time. [facility] Past Medical History Medical History (Updated 11/30/23 @ 12:13 by NASREEN Marley) Polysubstance use disorder Social History Social History Household Members: None Housing: Apartment Do you presently have visiting nurse or other home services: No Alcohol intake: current Alcohol intake frequency: a few times a week Patient Tobacco Use Status: Current everyday Tobacco user Tobacco use type: Cigarette Cigarette Packs Per Day: 1 Cigarettes Per Day: 20.0 Years Smoked: 30 e-Cigarette/Vaping Use: Never Used Substance Use Type: Crack/Cocaine, Heroin and Marijuana Meds Allergies Allergy/AdvReac Type Severity Reaction Status Date / Time No Known Allergies Allergy Verified 11/29/23 14:48 Active Medications: Current Medications Acetaminophen (Acetaminophen 325 Mg Tablet) 650 mg PO Q6H PRN PRN Reason: Pain, Mild (Pain Scale 1-3), fever or headache Benzonatate (Benzonatate 100 Mg Capsule) 100 mg PO TID PRN PRN Reason: Cough Calcium Carbonate (Calcium Carbonate 750 Mg Tab.Chew) 750 mg PO Q4H PRN PRN Reason: Heartburn Piperacillin Sod/Tazobactam (Sod 3.375 gm/ Sodium Chloride) 50 mls @ 100 mls/hr IV Q6H [facility] Last Infusion: 11/30/23 11:02 Dose: Infused Vancomycin HCl 1,000 mg/ (Sodium Chloride) 270 mls @ 270 mls/hr IV Q12H [facility] Last Infusion: 11/30/23 08:10 Dose: Infused Magnesium Hydroxide (Milk Of Magnesia 30 Ml Oral.Susp) 30 ml PO DAILY PRN PRN Reason: Constipation Melatonin (Melatonin 3 Mg Tablet) 6 mg PO BEDTIME PRN PRN Reason: Insomnia Pharmacy Consult (Consult Rx Vancomycin Dosing) 1 each MISCELLANE DAILY PRN PRN Reason: Consult order Sodium Chloride (0.9 % Sodium Chloride Flush 3 Ml Syringe) 3 ml IVFLUSH QSHIFT [facility] Last Admin: 11/30/23 07:31 Dose: Not Given Home Medications ?Medication ?Instructions ?Recorded ?Confirmed ?Last Taken ?Type methadone 10 mg tablet 60 mg PO DAILY 11/29/23 11/30/23 11/29/23 History Physical Exam Vital Signs: Vital Signs: Last Vital Signs Temp 99.0 F 11/30/23 10:11 Pulse 48 L 11/30/23 10:11 Resp 18 11/30/23 10:11 BP 138/66 11/30/23 10:11 Pulse Ox 98 11/30/23 10:11 O2 Del Method Room Air 11/30/23 10:11 BMI result Body Mass Index 25.1 Extrem: Other: Patient is alert, oriented, and in no acute distress. Neuro: Median, ulnar, radial nerves motor and sensory intact and sensation is normal to the tips of all digits. Vascular: Cap refill brisk Pain: Patient reports a dull soreness in his left hand at this time, but ?nothing he would describe as pain.? No increased tenderness to palpation over the flexor tendon of the left index finger ROM: Patient has slightly restricted range of motion left index finger, with both flexion and extension. Patient is able to flex to approximately 1 -2 cm from a closed fist, Patient is able to painlessly extend fully with passive range motion Skin: Erythema on the dorsal and radial aspect of the left hand and wrist Edema noted over the 2nd metacarpal and proximal left index finger 2 small areas of fluctuance with purulence noted, 1 over the dorsal 2nd metacarpal, and 1 over the dorsal index finger proximal phalanx Multiple open areas and track morrison noted on the left hand and forearm, consistent with IVDU Psych: Appears grossly normal Affect normal Attitude cooperative Results Labs 11/29/23 15:15 11/30/23 09:53 Labs: Abnormal lab results 11/29/23 11/29/23 Range/Units 15:15 15:43 RBC 4.57 L (4.60-5.80) X10*6/uL MPV 8.7 L (9.4-12.4) fL Lymph % (Auto) 17.4 L (20-40) % ESR 23 H (0-15) MM/HR Anion Gap 10 L (12-20) Random Glucose 134 H (60-115) mg/dL ALT 50 H (0-40) U/L C-Reactive Protein 0.73 H (< or = 0.50) mg/dL Total Protein 8.1 H (6.5-8.0) g/dL Urine Methadone Screen Positive H (Not Detect) ng/mL Urine Fentanyl Screen POSITIVE H (Not Detect) Urine Cocaine Screen POSITIVE H (Not Detect) U Marijuana (THC) Screen POSITIVE H (Not Detect) H & H 11/29/23 Range/Units 15:15 Hgb 14.2 (14.0-18.0) g/dl Hct 42.3 (42.0-52.0) % All other labs normal. Diagnostic results Wrist/Hand x-ray: report reviewed and image reviewed Assessment and Plan (1) Cellulitis: Qualifiers: Laterality: left Site of cellulitis: extremity Site of cellulitis of extremity: upper extremity Qualified Code(s): L03.114 - Cellulitis of left upper limb Status: Acute (2) Infection of left hand: Status: Acute Plan 1. Left hand infection At This time, index of suspicion for flexor tenosynovitis is very low due to adequate range of motion, no tenderness over the flexor tendon Surgery or intervention is not indicated in this patient at this time Continue IV antibiotics per Medicine Initiate warm water soaks to encourage drainage of small purulent areas noted on dorsal hand Irregularity and area of lucency on left index finger proximal phalanx seen on x-rays taken in the ED noted, but history of infection for 1 week he is not consistent with osteomyelitis Patient will be made NPO at midnight pending further evaluation tomorrow for potential surgical intervention Procedures Date of Service Date of Service: 11/30/23
--- NOTE | 2023-11-30 12:23 | MHC.RECOVRN ---
Met with pt in 364-1 after consult? placed to Addiction Medicine for H/O IVDU with cocaine and heroin.? ? Chart review completed and received report from floor nurse Luisa. Pt had presented to the ED following injecting heroin and cocaine into his arms resulting in infection and needing? medical clearance for detox for [facility].? ?Pt was admitted to the floor for treatment of left hand cellulitis secondary to IVDU that will require IV antibiotics, specialist consultation with Orthopedics, and likely surgical washout.? Pt reports he is currently on 60mg/day of methadone for MOUD.? This has not yet been verified so he only received 30mg this AM.? Upon assessment pt is lying in bed and is easily arousable.? He reports over all feeling much better but that he is experiencing W/D due to only receiving ? his methadone dose thi [facility].? Pt reporting body aches, depression and sweats observed.? Pt reports he has been on MOUD for approx 3 months and as soon as his infection clears and he is medically cleared he is going to detox.? Use history not obtained at todays visit as focus was on getting pt. Comfortable.? Pt requesting verification of methadone dosing with [facility].? I called and spoke with SIENNA Anaya and verified pt is receiving methadone 60mg/day and the last dose was 11/29/23.?? T/W provided pt with resources for harm reduction in the case that he is D/C to include FTS and community resources. I gave the last dose information to pt?s nurse Luisa and requested he get the other 30mg of his dose today and begin 60mg tomorrow AM.? She will contact the provider.? Report to ACS team.? Will continue to provide support while pt is hospitalized.
[2023-11-30 15:16] VITALS: BP 127/58; PULSE 50; RESP 18; TEMP 36.2; O2SAT 95
--- NOTE | 2023-11-30 16:25 | W.PM.IDCN ---
History of Present Illness Data of Consult Service Date: 11/30/23 Requesting physician: Nilsa Mckeon Primary Care Provider: None Physician HPI Reason for consult: left hand discomfort ?OM He presents after clearance needed for Rehab. He has noticed one week redness and pain left hand after injecting IV drugs. He has left hand XRay done and shows left hand possible OM second finger. He has multiple drugs in system methadone,fentanyl and cocaine and marijuana and needs to go to Rehab. He hasnt been checked for HIV in about a year. Review of Systems Review of Systems: Yes all other systems are reviewed and are negative [facility] Past Medical History Medical History Polysubstance use disorder Family History Family history: reviewed and not pertinent Social History Social History Household Members: None Housing: Apartment Do you presently have visiting nurse or other home services: No Alcohol intake: current Alcohol intake frequency: a few times a week Patient Tobacco Use Status: Current everyday Tobacco user Tobacco use type: Cigarette Cigarette Packs Per Day: 1 Cigarettes Per Day: 20.0 Years Smoked: 30 e-Cigarette/Vaping Use: Never Used Substance Use Type: Crack/Cocaine, Heroin and Marijuana Meds Allergies Allergy/AdvReac Type Severity Reaction Status Date / Time No Known Allergies Allergy Verified 11/29/23 14:48 Active Medications: Current Medications Acetaminophen (Acetaminophen 325 Mg Tablet) 650 mg PO Q6H PRN PRN Reason: Pain, Mild (Pain Scale 1-3), fever or headache Benzonatate (Benzonatate 100 Mg Capsule) 100 mg PO TID PRN PRN Reason: Cough Calcium Carbonate (Calcium Carbonate 750 Mg Tab.Chew) 750 mg PO Q4H PRN PRN Reason: Heartburn Piperacillin Sod/Tazobactam (Sod 3.375 gm/ Sodium Chloride) 50 mls @ 100 mls/hr IV Q6H [facility] Last Admin: 11/30/23 16:03 Dose: 100 mls/hr Vancomycin HCl 1,000 mg/ (Sodium Chloride) 270 mls @ 270 mls/hr IV Q12H [facility] Last Infusion: 11/30/23 08:10 Dose: Infused Magnesium Hydroxide (Milk Of Magnesia 30 Ml Oral.Susp) 30 ml PO DAILY PRN PRN Reason: Constipation Melatonin (Melatonin 3 Mg Tablet) 6 mg PO BEDTIME PRN PRN Reason: Insomnia Methadone HCl (Methadone Hcl 20 Mg/2 Ml Oral.Conc) 60 mg PO DAILY [facility] Pharmacy Consult (Consult Rx Vancomycin Dosing) 1 each MISCELLANE DAILY PRN PRN Reason: Consult order Sodium Chloride (0.9 % Sodium Chloride Flush 3 Ml Syringe) 3 ml IVFLUSH QSHIFT [facility] Last Admin: 11/30/23 16:03 Dose: 3 ml Home Medications ?Medication ?Instructions ?Recorded ?Confirmed ?Last Taken ?Type methadone 10 mg tablet 60 mg PO DAILY 11/29/23 11/30/23 11/29/23 History Physical Exam Vital Signs: Vital Signs: Last Vital Signs Temp 97.2 F 11/30/23 15:16 Pulse 50 11/30/23 15:16 Resp 18 11/30/23 15:16 BP 127/58 L 11/30/23 15:16 Pulse Ox 95 11/30/23 15:16 O2 Del Method Room Air 11/30/23 15:16 BMI result Body Mass Index 25.1 Const: General: cooperative HEENT: Head: Yes normal to inspection Face and sinus: Yes normal facial exam Mouth: Normal oral and palatal mucosa present Teeth and gingiva: dentition normal Eyes: General: appearance normal, both eyes and all related structures Pupils: Equal, round and reactive pupils present Resp: Effort & Inspection: normal respiratory effort Cardio: Rate: regular rate Rhythm: regular rhythm GI: Palpation (GI): Soft to palpation and nontender : General: Yes no CVA tenderness Back/Spine/Pelvis: Back: no CVA tenderness Skin: General skin exam: no rashes or lesions noted Neuro: General: moves all extremities Cranial nerves: Yes Equal, round and reactive pupils present Extrem: Other: arms scars from IVDA slight reddened and swollen left hand ,full ROM,scarring Psych: Appearance: grossly normal Results Labs 11/29/23 15:15 11/30/23 09:53 Labs: BMP 11/30/23 09:53 Creatinine 0.83 Assessment and Plan (1) Infection of left hand: Status: Acute (2) Active intravenous drug use: Status: Acute Plan His hand doesnt look like OM and ESR low at 23. He has multiple scarred areas and redness. He is somewhat better on Zosyn and Vancomycin. Follow Orthopedics If there remains low suspicion for OM would give po Doxycycline and Augmentin for a week and send to Rehab. Check HIV and Hepatitis C.
[2023-11-30 19:01] LABS: Vancomycin Random 8.4 mcg/mL (15-20)
[2023-11-30 19:19] VITALS: BP 128/59; PULSE 56; RESP 18; TEMP 36.6; O2SAT 97
[2023-11-30] MEDS: Acetaminophen 325 MG TABLET 650 MG PO (19:38)
[2023-11-30] MEDS: vancomycin HCL 1,250 MG in 0.9 % Sodium Chloride 250 ML 166.67 MG IV (21:00)
[2023-11-30 23:51] VITALS: BP 124/61; PULSE 50; RESP 18; O2SAT 98
[2023-12-01] MEDS: Piperacillin Sodium/Tazobactam 3.375 GM in 0.9 % Sodium Chloride 50 ML IV ×4 (04:29→22:49)
[2023-12-01 07:37] VITALS: BP 120/65; PULSE 53; RESP 18; TEMP 36.2; O2SAT 98
[2023-12-01] MEDS: methADONE HCl 20 MG/2 ML ORAL.CONC 60 MG PO (07:56)
[2023-12-01] MEDS: vancomycin HCL 1,250 MG in 0.9 % Sodium Chloride 250 ML 166.67 MG IV (07:57)
[2023-12-01] MEDS: 0.9 % Sodium Chloride Flush 3 ML SYRINGE IVFLUSH ×4 (07:57→22:49)
--- NOTE | 2023-12-01 11:15 | P.PNOP_ITS ---
Subjective Subjective Date of Service: 12/01/23 Interval history: Patient is a 52 male who is currently admitted to the hospital for evaluation left hand cellulitis. Today, the patient reports he is feeling much better, the redness and swelling in his hand has gone down significantly, and he is able to move his hand much more easily. When asked about infection timeline, patient reaffirmed that redness and swelling have only been ongoing for approximately 1 week, and also reports that he does have an old injury to his left index finger, where a chalkboard fell onto his left index finger. Physical Exam Vital Signs: Vital Signs: Last Vital Signs Temp 97.2 F 12/01/23 07:37 Pulse 53 12/01/23 07:37 Resp 18 12/01/23 07:37 BP 120/65 12/01/23 07:37 Pulse Ox 98 12/01/23 07:37 O2 Del Method Room Air 12/01/23 07:37 BMI result Body Mass Index 25.1 Extrem: Other: Patient is alert, oriented, and in no acute distress. Neuro: Median, ulnar, radial nerves motor and sensory intact and sensation is normal to the tips of all digits. Vascular: Cap refill brisk Pain: Patient reports no pain at this time No Tenderness to palpation, particularly over the flexor tendon of the left index finger ROM: Patient is able to easily make a closed fist and extend all fingers fully in the left hand Skin: Erythema noted on the radial and dorsal aspect of the left hand, improved from yesterday Edema improved significantly from yesterday 2 small areas of fluctuance with purulen ce noted, 1 over the dorsal 2nd metacarpal, and 1 over the dorsal index finger proximal phalanx, largely unchanged from yesterday Multiple open areas and track morrison noted on the left hand and forearm, consistent with IVDU Psych: Appears grossly normal Affect normal Attitude cooperative Procedures Date of Service Date of Service: 12/01/23 Progress Note: A&P Assessment and plan (1) Cellulitis: Status: Acute (2) Infection of left hand: Status: Acute Plan 1. Left hand cellulitis No surgical intervention indicated in this patient at this time Patient does not demonstrate signs and symptoms of any potential flexor tenosynovitis today Continue IV antibiotics per Medicine and Infectious Disease recommendations Continue to encourage warm water soaks in order to encourage drainage of 2 small fluctuant areas of purulence on the dorsal hand Clinical suspicion of osteomyelitis of the left index finger continues to be low, given the timeline of infection, improvement of symptoms, and lack of pain in the area Patient also reports an old injury to that digit that could have contributed to the radiographic findings seen on x-rays taken in the emergency department Time Spent With Patient Time: Total time managing care of this patient today ____ minutes. Quality Stroke Does the patient have a stroke diagnosis?: No VTE Prior VTE?: No VTE Risk Level:: Medical - moderate - high VTE Device Contraindication: N/A - Device Ordered VTE Drug Contraindication: Treatment Not Indicated
--- NOTE | 2023-12-01 11:18 | MHC.RECOVRN ---
Met with pt in 364 to follow up and provide support.? Pt resting but awakens easily to voice. Pt reports feeling better, and also reports that since the methadone increased back to 60mg he is no longer feeling W/D. No W/D ovserved. Pt using tylenol for pain with good effect. Pt denies other concerns at this time.? T/w available as needed.
--- NOTE | 2023-12-01 12:02 | P.PNIM_ITS ---
Subjective Subjective Date of Service: 12/01/23 Interval History: seen and evaluated this morning hand swelling and erythema improving no fever or chills Review of Systems Review of Systems: Yes all other systems are reviewed and are negative Physical Exam 2 Vital Signs: Vital Signs: Last Vital Signs Temp 97.2 F 12/01/23 07:37 Pulse 53 12/01/23 07:37 Resp 18 12/01/23 07:37 BP 120/65 12/01/23 07:37 Pulse Ox 98 12/01/23 07:37 O2 Del Method Room Air 12/01/23 07:37 BMI result Body Mass Index 25.1 Const: Other: Constitutional : Awake, interactive, not in distress Neck : Normal inspection, Supple Cardiovascular : RRR, no JVP, no lower extremity edema Respiratory : good bilateral air entry, no crackles, wheezes or rhonchi Gastrointestinal: soft, lax, Normal bowel sounds, Non tender Skin : Warm, Dry, multiple cut wounds, surgical morrison on both arms, Left hand swollen, warm, less tender with no significant amount of drainage. able to make a fist and release it Neurological : Alert & oriented x3, No focal deficit Objective Data Active Medications Acetaminophen (Acetaminophen 325 Mg Tablet) 650 mg PO Q6H PRN PRN Reason: Pain, Mild (Pain Scale 1-3), fever or headache Last Admin: 11/30/23 19:38 Dose: 650 mg Documented By: NAUMOC Benzonatate (Benzonatate 100 Mg Capsule) 100 mg PO TID PRN PRN Reason: Cough Calcium Carbonate (Calcium Carbonate 750 Mg Tab.Chew) 750 mg PO Q4H PRN PRN Reason: Heartburn Piperacillin Sod/Tazobactam (Sod 3.375 gm/ Sodium Chloride) 50 mls @ 100 mls/hr IV Q6H [facility] Last Infusion: 12/01/23 10:50 Dose: Infused Documented By: COTEMA Vancomycin HCl 1,250 mg/ (Sodium Chloride) 250 mls @ 166.667 mls/hr IV Q12H [facility] Last Infusion: 12/01/23 09:49 Dose: Infused Documented By: TERESAEMA Magnesium Hydroxide (Milk Of Magnesia 30 Ml Oral.Susp) 30 ml PO DAILY PRN PRN Reason: Constipation Melatonin (Melatonin 3 Mg Tablet) 6 mg PO BEDTIME PRN PRN Reason: Insomnia Methadone HCl (Methadone Hcl 20 Mg/2 Ml Oral.Conc) 60 mg PO DAILY [facility] Last Admin: 12/01/23 07:56 Dose: 60 mg Documented By: MYRNA Pharmacy Consult (Consult Rx Vancomycin Dosing) 1 each MISCELLANE DAILY PRN PRN Reason: Consult order Sodium Chloride (0.9 % Sodium Chloride Flush 3 Ml Syringe) 3 ml IVFLUSH QSHIFT [facility] Last Admin: 12/01/23 07:57 Dose: 3 ml Documented By: MYRNA Labs 11/29/23 15:15 11/30/23 09:53 Labs: Laboratory Results - last 24 hr 11/30/23 18:37 Random Vancomycin 8.4 L Microbiology Microbiology Results: Microbiology 11/29/23 16:25 Blood Culture - Preliminary Blood - Venous No growth after 24 hours. 11/29/23 16:11 Blood Culture - Preliminary Blood - Venous No growth after 24 hours. Assessment and Plan (1) Infection of left hand: Status: Acute (2) Active intravenous drug use: Status: Acute (3) Cellulitis: Status: Acute Plan Pt is a 52-year-old male with a PMH significant for?polysubstance use disorder with IVDU who presents to the ED with?left hand swelling, redness, and pain x1 week. Patient reports needing medical clearance in order to go into a detox program at [facility] in [place], [place]. Pt will be admitted to the hospital for treatment and further evaluation of left hand cellulitis secondary to IVDU that will require IV antibiotics. Left hand cellulitis pending cultures Continue vancomycin and Zosyn, started 11/29/2023 Orthopedic input appreciated, no need for intervention ID had low suspecion of OM, continue PO Abx at dishcarge: 1 wk Doxy and Augmentin follow Vancomycin trough IVDU Reports injecting heroin and cocaine Attempting medical clearance for admission at [facility] in [place], [place] Reports methadone dose of 60mg daily Addiction medicine consult DVT Prophylaxis: Pneumatic compression Pt will require a hospitalization overnight for treatment of?left hand cellulitis secondary to IVDU that will require IV antibiotics, specialist consultation Quality Stroke Does the patient have a stroke diagnosis?: No VTE Prior VTE?: No VTE Risk Level:: Medical - moderate - high VTE Device Contraindication: N/A - Device Ordered VTE Drug Contraindication: Treatment Not Indicated
[2023-12-01 15:28] VITALS: BP 116/67; PULSE 52; RESP 18; TEMP 36.3; O2SAT 96
[2023-12-01 18:25] LABS: Vancomycin Random 14.9 mcg/mL (15-20)
[2023-12-01 18:26] LABS: Anion Gap 13 (12-20); Blood Urea Nitrogen 14 mg/dL (9-16); Calcium 9.5 mg/dL (8.4-10.2); Carbon Dioxide 26 mmol/L (22-29); Chloride 105 mmol/L (96-108); Creatinine Clr Calc Pharmacy 97.1; Estimated Glomerular Filt Rate > 60; Glucose Random 95 mg/dL (60-115); Potassium 4.2 mmol/L (3.3-5.1); Sodium 140 mmol/L (135-145)
[2023-12-01] MEDS: vancomycin HCL 1,000 MG in 0.9 % Sodium Chloride 250 ML 270 MG IV (20:32)
[2023-12-01 23:18] VITALS: BP 126/60; PULSE 50; RESP 16; TEMP 36.7; O2SAT 96
[2023-12-02] MEDS: Piperacillin Sodium/Tazobactam 3.375 GM in 0.9 % Sodium Chloride 50 ML IV ×2 (04:53→10:12)
[2023-12-02 05:10] LABS: HIV AB/AG Nonreactive (Nonreactive); HIV Num 1 0.07 S/CO (0.00-0.99); ~HepC Num1 14.21 S/CO (0.00-0.79); ~Hepatitis C Antibody Reactive (Nonreactive)
[2023-12-02 07:25] VITALS: BP 134/66; PULSE 50; RESP 14; TEMP 36.3; O2SAT 99
[2023-12-02] MEDS: vancomycin HCL 1,000 MG in 0.9 % Sodium Chloride 250 ML 270 MG IV (08:09)
[2023-12-02] MEDS: 0.9 % Sodium Chloride Flush 3 ML SYRINGE IVFLUSH (08:10)
[2023-12-02] MEDS: methADONE HCl 20 MG/2 ML ORAL.CONC 60 MG PO (08:10)
--- NOTE | 2023-12-02 08:29 | P.PNOP_ITS ---
Subjective Subjective Date of Service: 12/02/23 Interval history: Patient is a 53-year-old male who is admitted to the hospital for evaluation of left hand cellulitis. Today, patient reports that he is feeling okay, but reports that he is experiencing some on the dorsal aspect of his left thumb. Patient notes that his range of motion is still normal. No other acute complaints at this time Physical Exam Vital Signs: Vital Signs: Last Vital Signs Temp 97.3 F 12/02/23 07:25 Pulse 50 12/02/23 07:25 Resp 14 12/02/23 07:25 BP 134/66 12/02/23 07:25 Pulse Ox 99 12/02/23 07:25 O2 Del Method Room Air 12/02/23 07:25 BMI result Body Mass Index 25.1 Extrem: Other: Patient is alert, oriented, and in no acute distress. Neuro: Median, ulnar, radial nerves motor and sensory intact and sensation is normal to the tips of all digits. Vascular: Cap refill brisk Pain: Patient reports mild pain in the dorsal aspect of the left thumb Mild Tenderness to palpation in that area No other tenderness to palpation, particularly over the flexor tendon of the left index finger ROM: Patient is able to easily make a closed fist and extend all fingers fully in the left hand Skin: Erythema noted on the radial and dorsal aspect of the left hand, improved from yesterday Edema improved significantly from yesterday 2 small areas of fluctuance with purulen ce noted, 1 over the dorsal 2nd metacarpal, and 1 over the dorsal index finger proximal phalanx, largely unchanged from yesterday Multiple open areas and track morrison noted on the left hand and forearm, consistent with IVDU Psych: Appears grossly normal Affect normal Attitude cooperative Procedures Date of Service Date of Service: 12/02/23 Progress Note: A&P Assessment and plan (1) Cellulitis: Status: Acute (2) Infection of left hand: Status: Acute Plan 1. Left hand cellulitis No surgical intervention indicated in this patient at this time Patient does not demonstrate signs and symptoms of any potential flexor tenosynovitis today Continue IV antibiotics per Medicine and Infectious Disease recommendations Continue to encourage warm water soaks in order to encourage drainage of 2 small fluctuant areas of purulence on the dorsal hand Clinical suspicion of osteomyelitis of the left index finger continues to be low, given the timeline of infection, improvement of symptoms, and lack of pain in the area Patient also reports an old injury to that digit that could have contributed to the radiographic findings seen on x-rays taken in the emergency department Time Spent With Patient Time: Total time managing care of this patient today ____ minutes. Quality Stroke Does the patient have a stroke diagnosis?: No VTE Prior VTE?: No VTE Risk Level:: Medical - moderate - high VTE Device Contraindication: N/A - Device Ordered VTE Drug Contraindication: Treatment Not Indicated
[2023-12-02 08:56] LABS: Hematocrit 43.8 % (42.0-52.0); Hemoglobin 15.3 g/dl (14.0-18.0); Mean Corpuscular HGB Conc 34.9 g/dl (31.0-36.0); Mean Corpuscular Volume 91.6 fL (80.0-98.0); Mean Platelet Volume 9.8 fL (9.4-12.4); Platelet Count 239 X10*3/uL (160-400); Red Blood Count 4.78 X10*6/uL (4.60-5.80); Red Cell Distribution Width 12.6 % (11.0-16.0); White Blood Count 11.4 X10*3/uL (4.8-10.8)
[2023-12-02 09:11] LABS: Anion Gap 13 (12-20); Blood Urea Nitrogen 13 mg/dL (9-16); Calcium 8.8 mg/dL (8.4-10.2); Carbon Dioxide 21 mmol/L (22-29); Chloride 108 mmol/L (96-108); Creatinine Clr Calc Pharmacy 91.9; Estimated Glomerular Filt Rate > 60; Glucose Random 119 mg/dL (60-115); Sodium 138 mmol/L (135-145)
--- NOTE | 2023-12-02 10:01 | HO.WOUND ---
Wound Consult: Initial 53yr old?male admitted to [facility] on 11/29/23 - See progress notes and H&P for detailed history.? Wound consult placed for Left hand wounds POA.? Patient agreeable to assessment and photo documentation.? Patient was followed by Ortho no surgical intervention needed at this time. see chart for detailed noted. Left hand and index finger Etiology: ?Ulceration secondary to IV injection sites - ?Present on Admission Wound Bed: index finger with line opening - red moist wound bed with surrounding erythema and swelling Left hand with observed trapped yellow drainage - will benefit from continued soaks and topical wound gel to soften epidermal later for wound bed cleansing Drainage / Odor: serosang noted from index finger Edges: ? defined Angela wound: ?red dry erythema - swelling noted Pain: painfu and tender at times per pt statement Goals of Treatment: ? moist wound healing and routine regular cleansing Recommendations: 1. Left hand - Cleanse with soap and water, follow soak recommendations from Ortho team. Apply layer of wound gel to wound bed - cover with dry gauze. Change daily. Re-consult wound care Nurse for wound deterioration or wound changes.
--- NOTE | 2023-12-02 12:10 | HO.PM.IMPN ---
Subjective Subjective Date of Service: 12/02/23 Interval History: seen and evaluated this morning hand swelling and erythema improving still has drainage from index side no fever or chills Review of Systems Review of Systems: Yes all other systems are reviewed and are negative Physical Exam Vital Signs: Vital Signs: Last Vital Signs Temp 97.3 F 12/02/23 07:25 Pulse 50 12/02/23 07:25 Resp 14 12/02/23 07:25 BP 134/66 12/02/23 07:25 Pulse Ox 99 12/02/23 07:25 O2 Del Method Room Air 12/02/23 07:25 BMI result Body Mass Index 25.1 Const: Other: Constitutional : Awake, interactive, not in distress Neck : Normal inspection, Supple Cardiovascular : RRR, no JVP, no lower extremity edema Respiratory : good bilateral air entry, no crackles, wheezes or rhonchi Gastrointestinal: soft, lax, Normal bowel sounds, Non tender Skin : Warm, Dry, multiple cut wounds, surgical morrison on both arms, Left hand swollen, warm, less tender with no significant amount of drainage. able to make a fist and release it Neurological : Alert & oriented x3, No focal deficit Objective Data Active Medications Acetaminophen (Acetaminophen 325 Mg Tablet) 650 mg PO Q6H PRN PRN Reason: Pain, Mild (Pain Scale 1-3), fever or headache Last Admin: 11/30/23 19:38 Dose: 650 mg Documented By: NAUMOC Benzonatate (Benzonatate 100 Mg Capsule) 100 mg PO TID PRN PRN Reason: Cough Calcium Carbonate (Calcium Carbonate 750 Mg Tab.Chew) 750 mg PO Q4H PRN PRN Reason: Heartburn Piperacillin Sod/Tazobactam (Sod 3.375 gm/ Sodium Chloride) 50 mls @ 100 mls/hr IV Q6H [facility] Last Infusion: 12/02/23 10:53 Dose: Infused Documented By: JULIANN Vancomycin HCl 1,000 mg/ (Sodium Chloride) 270 mls @ 270 mls/hr IV Q12H [facility] Last Infusion: 12/02/23 09:11 Dose: Infused Documented By: JULIANN Magnesium Hydroxide (Milk Of Magnesia 30 Ml Oral.Susp) 30 ml PO DAILY PRN PRN Reason: Constipation Melatonin (Melatonin 3 Mg Tablet) 6 mg PO BEDTIME PRN PRN Reason: Insomnia Methadone HCl (Methadone Hcl 20 Mg/2 Ml Oral.Conc) 60 mg PO DAILY [facility] Last Admin: 12/02/23 08:10 Dose: 60 mg Documented By: JULIANN Pharmacy Consult (Consult Rx Vancomycin Dosing) 1 each MISCELLANE DAILY PRN PRN Reason: Consult order Sodium Chloride (0.9 % Sodium Chloride Flush 3 Ml Syringe) 3 ml IVFLUSH QSHIFT [facility] Last Admin: 12/02/23 08:10 Dose: 3 ml Documented By: JULIANN Labs 12/02/23 08:38 12/02/23 08:38 Labs: Laboratory Results - last 24 hr 11/30/23 12/01/23 12/02/23 18:37 17:59 08:38 MCV 91.6 MCH 32.0 MCHC 34.9 RDW 12.6 Plt Count 239 MPV 9.8 Absolute Nucleated RBC 0.000 Nucleated RBC % (auto) 0.0 Anion Gap 13 13 Estim Creat Clear Calc 97.1 91.9 Estimated GFR > 60 > 60 Random Glucose 95 119 H Calcium 9.5 8.8 D Random Vancomycin 14.9 L Hepatitis C Ab (EIA) Reactive H HIV 1&2 Ab/P24 Ag 4thGn Nonreactive Microbiology Microbiology Results: Microbiology 11/29/23 16:25 Blood Culture - Preliminary Blood - Venous No growth after 48 hours. 11/29/23 16:11 Blood Culture - Preliminary Blood - Venous No growth after 48 hours. Assessment and Plan (1) Infection of left hand: Status: Acute (2) Active intravenous drug use: Status: Acute (3) Cellulitis: Status: Acute Plan Pt is a 52-year-old male with a PMH significant for?polysubstance use disorder with IVDU who presents to the ED with?left hand swelling, redness, and pain x1 week. Patient reports needing medical clearance in order to go into a detox program at [facility] in [place], [place]. Pt will be admitted to the hospital for treatment and further evaluation of left hand cellulitis secondary to IVDU that will require IV antibiotics. Left hand cellulitis pending final blood cultures Continue vancomycin and Zosyn, started 11/29/2023 Orthopedic input appreciated, no need for intervention ID had low suspecion of OM, continue PO Abx at dishcarge: 1 wk Doxy and Augmentin follow Vancomycin trough IVDU Reports injecting heroin and cocaine He should be medically clear at this point for admission at [facility] in [place], [place] as his infection is treated methadone dose of 60mg daily Addiction medicine following Hepatitis C patient aware of diagnosis. requested him to follow with PCP as outpatient to start treatment DVT Prophylaxis: Pneumatic compression Pt will require a hospitalization overnight for treatment of?left hand cellulitis secondary to IVDU that will require IV antibiotics Quality Stroke Does the patient have a stroke diagnosis?: No VTE Prior VTE?: No VTE Risk Level:: Medical - moderate - high VTE Device Contraindication: N/A - Device Ordered VTE Drug Contraindication: Treatment Not Indicated
--- NOTE | 2023-12-02 13:08 | MHC.RECOVRN ---
Spoke with nursing at [facility], they have received paperwork and at this time pt is medically cleared and accepted to [facility].
--- NOTE | 2023-12-02 13:21 | P.DS_ITS ---
DS: Providers Provider Date of Service: 12/02/23 Date of admission: 11/29/23 20:13 Primary care physician: None Physician Consults: 11/29/23 20:13 Consult to Orthopedics Routine Consulting Provider: [facility] Reason for consultation: Left hand cellulitis secondary to IVDU 11/29/23 20:19 Addiction Medicine Routine Consulting Provider: Addiction Covering Reason for consultation: IVDU w/ cocaine, heroin 11/30/23 08:23 Consult to Infectious Diseases Routine Consulting Provider: [facility] Reason for consultation: Left hand cellulitis, OM ?, Abx course advice 12/01/23 08:48 Consult to Wound Care Routine Reason for consultation: cellulitis to left hand DS: Diagnosis Discharge Diagnosis (1) Infection of left hand: Status: Acute (2) Active intravenous drug use: Status: Acute (3) Cellulitis: Status: Acute DS: Summary Hospital Course Hospital Course: Admission note HPI Pt is a 52-year-old male with a PMH significant for?polysubstance use disorder with IVDU who presents to the ED with?left hand swelling, redness, and pain x1 week. Patient reports needing medical clearance in order to go into a detox program at [facility] in [place], [place]. Reports he has been injecting both heroin and cocaine into arms and hands with last use this morning. First began noticing swelling and pain in left hand approximately one week ago. Has had some purulent, milky discharge but no noxious smell. Also reports fatigue and subjective fever and chills. Denies nausea, vomiting, abdominal pain. No chest pain/pressure, palpitations. Denies shortness of breath or difficulty breathing. States is on methadone 30mg. Denies any other significant PMH, the patient has not been seen by a PCP for many years. In the ED pt was hypertensive up to 146/69, vitals otherwise stable and WNL. Labs were largely reassuring and significant for ESR mildly elevated at 23, CRP 0.73, and ALT 50. No leukocytosis. Stable H& H. No significant electrolyte abnormalities. Lactic acid WNL at 1.8. Renal function WNL. Tox screen positive for methadone, fentanyl, cocaine, and marijuana. X-ray of left hand showed subtle cortical irregularity and lucency on distal 3rd and proximal phalanx of 2nd digit, osteomyelitis not entirely excluded. Also found small osseous protrusion along dorsal surface of distal phalanx of 2nd digit, possibly representing avulsion fracture or degenerative changes. Pt was treated with vancomycin and Zosyn. Pt will be admitted to the hospital for treatment and further evaluation of left hand cellulitis secondary to IVDU that will require IV antibiotics. Hospital course Left hand cellulitis with negative final blood cultures as he was treated with IV vancomycin and Zosyn, started 11/29/2023 and evaluated by Orthopedic team who recommended no need for intervention and ID who had low suspecion of OM and recommended treat with IV while inpatient and PO antibiotics at [facility]. Cellulitis resolved and swelling went down significantly with no evidence of osteomyelitis clinically. To be discharged on 1 week of Doxycycline and Augmentin. He has a history IVDU with reports injecting heroin and cocaine. He should be medically clear at this point for admission at [facility] in [place], [place] as his infection is treated and will continue oral antiibotics on discharge. continue methadone dose of 60mg daily as he was followed by Addiction medicine team. Hepatitis C. patient aware of diagnosis. requested him to follow with PCP as outpatient to start treatment Discharge plan Continue Doxycycline and Augmentin for 1 more week Come back to ED for any worsening swelling, pain or drainage, fever. Time Attestation Discharge Coordination Time (in mins): 35 Quality: Safe Use of Opioids Does Pt have an Active Cancer Diagnosis on the Problem List?: No Quality: Stroke Does the patient have a stroke diagnosis?: No Physical Exam Vital Signs: Vital Signs: Last Vital Signs Temp 97.3 F 12/02/23 07:25 Pulse 50 12/02/23 07:25 Resp 14 12/02/23 07:25 BP 134/66 12/02/23 07:25 Pulse Ox 99 12/02/23 07:25 O2 Del Method Room Air 12/02/23 07:25 BMI result Body Mass Index 25.1 Const: Other: Constitutional : Awake, interactive, not in distress Neck : Normal inspection, Supple Cardiovascular : RRR, no JVP, no lower extremity edema Respiratory : good bilateral air entry, no crackles, wheezes or rhonchi Gastrointestinal: soft, lax, Normal bowel sounds, Non tender Skin : Warm, Dry, multiple cut wounds, surgical morrison on both arms, Left hand resolving swelling, no erythema , no drainage. able to make a fist and release it Neurological : Alert & oriented x3, No focal deficit DS: Data Data Completed and Pending Labs on day of discharge: Laboratory Results - last 24 hr 11/30/23 12/01/23 12/02/23 18:37 17:59 08:38 WBC 11.4 H RBC 4.78 Hgb 15.3 Hct 43.8 MCV 91.6 MCH 32.0 MCHC 34.9 RDW 12.6 Plt Count 239 MPV 9.8 Absolute Nucleated RBC 0.000 Nucleated RBC % (auto) 0.0 Sodium 140 138 Potassium 4.2 4.0 Chloride 105 108 Carbon Dioxide 26 21 L Anion Gap 13 13 BUN 14 13 Creatinine 0.90 0.94 Estim Creat Clear Calc 97.1 91.9 Estimated GFR > 60 > 60 Random Glucose 95 119 H Calcium 9.5 8.8 D Random Vancomycin 14.9 L Hepatitis C Ab (EIA) Reactive H HIV 1&2 Ab/P24 Ag 4thGn Nonreactive Preliminary micro results at discharge 11/29/23 16:25 Blood Culture - Preliminary Blood - Venous No growth after 48 hours. 11/29/23 16:11 Blood Culture - Preliminary Blood - Venous No growth after 48 hours. Imaging Chest x-ray: Radiologist's impression: ITS Impressions Hand/Wrist X-Ray 11/29/23 15:06 IMPRESSION: 1. Subtle cortical irregularity and lucency along the medial and lateral aspect of the distal third of the proximal phalanx of the second digit. Findings might be posttraumatic or infectious in nature, osteomyelitis cannot be entirely excluded. Further evaluation with targeted MRI as clinically warranted. 2. Small osseous protrusion along the dorsal surface of the distal phalanx of the second digit. This could represent sequela of an avulsion fracture or degenerative changes. Recommend correlation with point tenderness. 3. Soft tissue swelling predominantly around the first and second digits/metacarpals. Discharge Plan Discharge Anticipated Discharge Date/Time: 12/02/23 11:55 Patient Disposition: Home, Self-Care Discharge Diagnosis: Left hand cellulitis Referrals: Physician,None [Primary Care Provider] - 1 Week Discharge Medications: New amoxicillin-pot clavulanate 875-125 mg tablet 1 tab PO BID Qty: 14 0RF doxycycline monohydrate 100 mg capsule 100 mg PO BID Qty: 14 0RF Continued methadone 10 mg Tablet 60 mg PO DAILY Discharge Orders: Discharge Order (Routine); Ordered 12/02/23 Ordered By: Nilsa Mckeon Diet: Advance to usual diet Activity on Discharge: As tolerated Stand Alone Forms: Patient Portal Discharge page Print Language: Azerbaijani Care Plan Goals: You were treated for skin infection with IV antibiotics and will be discharged home on oral antibiotics to finish the treatment. You are medically stable to be admitted to the Detox program Continue Doxycycline and Augmentin for 1 more week Follow up with PCP\dr Reyez to start treatment for Hepatitis C infection Come back to ED for any worsening swelling, pain or drainage, fever. Health Concerns: Read below Plan of Treatment: Read below Assessment: Read below
--- NOTE | 2023-12-02 15:06 | MHC.CM.PN ---
pt dcd today sarah harrell has made arrangements for pts admission to [facility] in [facility] pt s sister is aware of same all necessary paperwork completed as well
== END 2023-12-02 14:00 | disposition home or self-care (01) | DRG 383 ==
LOC: HO.ED 17:16 → HO.EDOVER 20:20 → HO.S3 11-30 07:20
PROVIDERS: Internal Medicine; Nurse Practitioner Family; Physician Assistant Medical; Admitting Provider Student in an Organized Health Care Education/Training Program; Emergency Provider Emergency Medicine; Visit Provider Student in an Organized Health Care Education/Training Program
DX: L03.114 Cellulitis of left upper limb (principal); F11.20 Opioid dependence, uncomplicated; F17.210 Nicotine dependence, cigarettes, uncomplicated; Z71.6 Tobacco abuse counseling
CPT/HCPCS: 36415; 73110; 73130; 80048; 80053; 80202; 80307; 82565; 83605; 85025; 85027; 85652; 86140; 86803; 87040; 87389; 99285; J2543; J3370; J3371

== ENCOUNTER → 2023-11-29 20:13 | Outpatient (BNV) | payer MEDICAID, SELFPAY | PROVIDERS: Admitting Provider Student in an Organized Health Care Education/Training Program; Emergency Provider Emergency Medicine; Visit Provider Student in an Organized Health Care Education/Training Program | DX: L03.114 Cellulitis of left upper limb (principal); L08.9 Local infection of the skin and subcutaneous tissue, unspecified; F19.90 Other psychoactive substance use, unspecified, uncomplicated | CPT/HCPCS: 99223; 99232; 99233; 99239 ==

== ENCOUNTER → 2023-11-29 20:13 | Outpatient (BNV) | payer MEDICAID, SELFPAY | PROVIDERS: Admitting Provider Student in an Organized Health Care Education/Training Program; Emergency Provider Emergency Medicine; Visit Provider Internal Medicine | DX: L08.9 Local infection of the skin and subcutaneous tissue, unspecified (principal); F19.90 Other psychoactive substance use, unspecified, uncomplicated | CPT/HCPCS: 99222 ==

== ENCOUNTER → 2023-11-29 20:13 | Outpatient (BNV) | payer MEDICAID, SELFPAY | PROVIDERS: Admitting Provider Student in an Organized Health Care Education/Training Program; Emergency Provider Emergency Medicine | DX: L03.114 Cellulitis of left upper limb (principal); L08.9 Local infection of the skin and subcutaneous tissue, unspecified | CPT/HCPCS: 99222; 99232 ==

== ENCOUNTER 2024-03-22 14:13 | Emergency (ER) | payer MEDICAID, SELFPAY ==
[2024-03-22] VITALS (13 sets, daily range): BP systolic 103–135; BP diastolic 47–97; PULSE 58–110; RESP 16–18; TEMP 36.2–36.7; O2SAT 97–99; BMI 24.0
--- NOTE | ~2024-03-22 | XR_ITS ---
EXAMINATION: XR HAND, LEFT CLINICAL INFORMATION: Swelling redness history of IVDA COMPARISON: X-rays of the left hand November 2023 TECHNIQUE: PA, lateral, and oblique views of the left hand. FINDINGS: Question mild soft tissue prominence of the index finger possibly soft tissue swelling versus normal variation. Similar finding noted previously. Minimal capsular calcification adjacent to the 2nd PIP joint and DIP joint of the index finger unchanged likely without clinical significance related to some degenerative change or old partial tearing of the capsule. Bones joints and soft tissues are otherwise unremarkable. XR/XR hand LT min 3V IMPRESSION: 1. No acute abnormality. 2. Question soft tissue swelling of the index finger. Electronically signed by: Lexa Matute MD 03/22/2024 03:08 PM [facility]
--- NOTE | ~2024-03-22 | CT_ITS ---
EXAMINATION: CT FOREARM WITH CONTRAST, LEFT CLINICAL INFORMATION: infection/osteo/IVDA, FB? COMPARISON: None available. TECHNIQUE: Intravenous injection of 80 mL Omnipaque 350. Coronal and sagittal reformatted images are performed at CT scanner This CT examination was performed using dose optimization techniques as appropriate, variously including the following: *Automated exposure control *Adjustment of mA and/or kV according to patient size (this includes techniques or standardized protocols for targeted exams where dose is matched to indication/reason for exam; i.e. extremities or head) *Use of iterative reconstruction technique DLP: 157 mGy-cm FINDINGS: There is a small volume of fluid and diffuse mild subcutaneous edema in the subcutaneous tissues of the forearm. Largest volume of fluid in the subcutaneous tissues of the proximal forearm within the subcutaneous tissue measuring about 1 cm in diameter. Image 34/155 series 7. This has a density measurement of 1 Hounsfield units, simple fluid. No abscess. No radiopaque foreign body. No abnormal enhancing lesion or enhancing collection. No osseous abnormality. CT/CT forearm LT w IV con IMPRESSION: Small volume of fluid and diffuse mild subcutaneous edema in the subcutaneous tissues of the forearm. No abscess. No radiopaque foreign body. Electronically signed by: Arnoldo Martel MD 03/22/2024 07:44 PM EST
--- NOTE | 2024-03-22 14:23 | ED_ITS ---
HPI - General Adult General Chief complaint: General Medical Stated complaint: Blood poisoning Time Seen by Provider: 03/22/24 16:48 Source: patient Limitations: no limitations History of Present Illness ED Provider: Arianna bustamante PA-C HPI narrative: 53-year-old male with a history of polysubstance abuse, IV drug abuse presents with bilateral upper extremity infection of unclear duration. Associated redness, swelling, warmth, pain, and numerous ulcerations Patient admits to last using earlier today. Denies fevers. Denies active drainage from any of the lesions. Denies inability to flex or extend from either wrist or the elbow. Related Data Home Medications ?Medication ?Instructions ?Recorded ?Confirmed methadone 10 mg tablet 60 mg PO DAILY 11/29/23 11/30/23 Previous Rx's ?Medication ?Instructions ?Recorded amoxicillin 875 mg-potassium 1 tab PO BID #14 tabs 12/02/23 clavulanate 125 mg tablet doxycycline monohydrate 100 mg 100 mg PO BID #14 caps 12/02/23 capsule cephalexin 500 mg capsule 500 mg PO QID #40 caps 03/22/24 sulfamethoxazole 800 1 tab PO Q12H #20 tabs 03/22/24 mg-trimethoprim 160 mg tablet (Bactrim DS) Allergies Allergy/AdvReac Type Severity Reaction Status Date / Time No Known Allergies Allergy Verified 03/22/24 14:25 Review of Systems 2 Review of Systems: Yes all other systems are reviewed and are negative Constitutional: Constitutional: Denies fatigue and Denies fever(s) Cardiovascular: Cardiovascular: Denies chest pain and Denies dyspnea Respiratory: Respiratory: Denies dyspnea Gastrointestinal: Gastrointestinal: Denies nausea Musculoskeletal: Musculoskeletal: Denies arthralgias, Denies joint swelling, Denies muscle weakness, Denies numbness and Denies tingling Integumentary/Breasts: Skin/Breast: Reports erythema, Reports skin swelling and Reports wounds Neurologic: Denies numbness and Denies tingling Endocrine: Endocrine: Denies fatigue PMFSH Past Medical History Attestation statement: The following information was validated with the patient. Medical History (Updated 03/23/24 @ 00:00 by Gabi Daemon) Active intravenous drug use Polysubstance use disorder Social History Social History Household Members: None Housing: Apartment Do you presently have visiting nurse or other home services: No Alcohol intake: current Alcohol intake frequency: a few times a week Patient Tobacco Use Status: Current everyday Tobacco user Tobacco use type: Cigarette Cigarette Packs Per Day: 1 Cigarettes Per Day: 20.0 Years Smoked: 30 Smoked in Last 30 Days: Yes e-Cigarette/Vaping Use: Never Used Use of substances other than those prescribed or required for medical reasons: Yes Substance Use Type: Crack/Cocaine Substance Use Frequency: Daily Last Used Substance: Just Prior to Admission Any prior treatment program specific to substance use: No Advance Directives: No Advance Directives Information Provided: No Do you have a plan to hurt others: No Plan Physical Exam ED Vital Signs: Vital Signs - 24 hr 03/22/24 14:23 03/22/24 17:01 03/22/24 17:23 Temperature 98.0 F 98 F Pulse Rate 61 58 60 Respiratory Rate 18 16 Blood Pressure 131/77 123/64 130/47 L Pulse Oximetry 99 Oxygen Delivery Method Room Air 03/22/24 17:43 03/22/24 18:03 03/22/24 19:13 Temperature Pulse Rate 69 Respiratory Rate Blood Pressure 116/67 118/55 L 109/49 L Pulse Oximetry Oxygen Delivery Method 03/22/24 19:23 03/22/24 19:23 03/22/24 19:43 Temperature Pulse Rate 74 Respiratory Rate Blood Pressure 106/55 L 103/49 L 112/49 L Pulse Oximetry Oxygen Delivery Method 03/22/24 19:49 03/22/24 20:03 03/22/24 21:42 Temperature 97.1 F Pulse Rate 110 H 78 Respiratory Rate 16 18 Blood Pressure 135/97 H 121/57 L 112/47 L Pulse Oximetry 97 98 Oxygen Delivery Method Room Air Room Air 03/22/24 22:03 Temperature Pulse Rate 76 Respiratory Rate 18 Blood Pressure 108/47 L Pulse Oximetry 97 Oxygen Delivery Method Room Air BMI result Body Mass Index 24.0 Const Other: Alert, appears older than stated age Orientation/consciousness: patient oriented x3 Resp Other: Nonlabored respiration Cardio Other: Normal peripheral perfusion Skin Other: Warm dry no rash Neuro General: patient oriented x3, no focal motor deficits and CN's II-XI intact bilaterally Extrem Other: Skin over bilateral upper extremities is warm, erythematous and thickened. There are numerous track morrison with scab formation and ulcerations in varying degrees of healing, no active purulence from any of the site. There is an indurated tender swelling over left forearm just inferior to the wrist. Patient is able to fully flex and extend from both wrists and elbows Psych Other: Calm cooperative Course Course Course Narrative: This is an RME: Additional HPI, ROS, PE not included below will be deferred to primary provider. RME assessment and note performed by: Jaclyn Petty PA-C This is a 89-koxg-mje-male, with a hx of IVDA, who presents to the ER with complaints of concerns for BL arm infections secondary to IVDA. Reports that he uses typically 1/2 g of cocaine IV per day, last use was this AM. He was previously admitted in the past for osteomyelitis of the left hand in January. Bilateral arms with significant scarring from intravenous drug use. Does have erythema and drainage noted from left hand. Plan: Labs, x-ray, further ER evaluation needed. Medications Administered Discontinued Medications Generic Name Dose Route Start Last Admin Trade Name Freq PRN Reason Stop Dose Admin Sodium Chloride 2,208 mls @ 2,208 mls/hr 03/22/24 16:48 03/22/24 18:49 Ns 30 ml/kg infuse over 1 hr (2208 ml) 03/22/24 17:47 Infused IV Infusion .Q1H STA Vancomycin HCl 1,000 mg/ 535 mls @ 267.5 mls/hr 03/22/24 17:30 03/22/24 20:20 Vancomycin HCl 750 mg/ Sodium IV 03/22/24 19:29 Infused Chloride ONCE ONE Infusion Iohexol 100 ml 03/22/24 18:54 03/22/24 18:54 Iohexol 350 Mg/Ml 100 Ml Infus..Btl IV 03/22/24 18:55 80 ml ONCE ONE Administration Medical Decision Making Medical Decision Making MDM Narrative: 53-year-old male with a history of polysubstance abuse, IV drug abuse presents with bilateral upper extremity infection of unclear duration. Associated redness, swelling, warmth, pain, and numerous ulcerations Patient admits to last using earlier today. Denies fevers. Denies active drainage from any of the lesions. Denies inability to flex or extend from either wrist or the elbow. Abdomen: IV drug abuse History: Per patient I have considered the following differential diagnoses: Sepsis, septic joint, cellulitis, purulent cellulitis, osteomyelitis, abscess, retained foreign body Plan: Patient is not septic, he is hemodynamically stable and afebrile. He will receive IV vanco at this time. We will screen basic labs, lactic and blood cultures. Giving morphine for his pain. Thought about septic joint, however he has full range of motion of the surrounding joints in relation to the cellulitis. He could have an abscess over the left forearm given the indurated swelling. He injects frequently, he could have a retained foreign body as well. I am also concerned for potential osteomyelitis. Going to order a CT scan. I have independently reviewed the following tests: Labs: Slight leukocytosis, not anemic, no electrolyte abnormality, 1st lactate 2.5, giving IV fluid in them we will repeat the 2nd is 1.6. CT left forearm:RDER #: [id number] CT/CT forearm LT w IV con IMPRESSION: Small volume of fluid and diffuse mild subcutaneous edema in the subcutaneous tissues of the forearm. No abscess. No radiopaque foreign body. Electronically signed by: Arnoldo Martel MD 03/22/2024 07:44 PM [facility] Overall, the patient's labs are normal, lactate normalized, he could bend a little bit dry, he remains hemodynamically stable, he is not meet criteria for inpatient admission, we will send with outpatient Bactrim and cephalexin Lab Data 03/22/24 14:52 03/22/24 14:52 Labs: Lab Results 03/22/24 03/22/24 Range/Units 14:52 20:28 WBC 11.9 H (4.8-10.8) X10*3/uL RBC 4.87 (4.60-5.80) X10*6/uL Hgb 15.3 (14.0-18.0) g/dl Hct 44.6 (42.0-52.0) % MCV 91.6 (80.0-98.0) fL MCH 31.4 (27.0-33.0) pg MCHC 34.3 (31.0-36.0) g/dl RDW 12.8 (11.0-16.0) % Plt Count 237 (160-400) X10*3/uL MPV 9.8 (9.4-12.4) fL Immature Gran % (Auto) 0.3 (0.0-0.4) % Neut % (Auto) 77.7 H (45-73) % Lymph % (Auto) 16.0 L (20-40) % [place] % (Auto) 4.3 (2-11) % Eos % (Auto) 1.2 (0-4) % Baso % (Auto) 0.5 (0-2) % Lymph # (Auto) 1.9 (1.2-4.9) X10*3/uL [place] # (Auto) 0.5 (0.1-1.2) X10*3/uL Eos # (Auto) 0.1 (0.0-0.4) X10*3/uL Baso # (Auto) 0.1 (0.0-0.2) X10*3/uL Abs Immat Gran (auto) 0.03 (0.00-0.03) X10*3/uL Absolute Neuts (auto) 9.3 H (2.0-8.3) x10*3/uL Absolute Nucleated RBC 0.000 (0.0-0.012) X10*3/uL Nucleated RBC % (auto) 0.0 (0.0-0.2) /100WBC Smear Tech's Comments VERIFIED Sodium 140 (135-145) mmol/L Potassium 4.7 (3.3-5.1) mmol/L Chloride 104 (96-108) mmol/L Carbon Dioxide 22 (22-29) mmol/L Anion Gap 19 (12-20) BUN 22 H (9-16) mg/dL Creatinine 1.01 (0.5-1.4) mg/dL Estim Creat Clear Calc 85.5 Estimated GFR > 60 Random Glucose 117 H (60-115) mg/dL Lactic Acid 2.5 H* (0.5-2.0) mmol/L Lactic Acid F/U @ 2Hr 1.6 (0.5-2.0) mmol/L Calcium 10.3 H D (8.4-10.2) mg/dL Magnesium 2.3 (1.6-2.6) mg/dL Total Bilirubin 0.7 (0.0-1.0) mg/dL Direct Bilirubin 0.2 (0.0-0.5) mg/dL AST 59 H (5-37) U/L ALT 88 H (0-40) U/L Alkaline Phosphatase 87 (39-117) U/L Total Protein 9.3 H (6.5-8.0) g/dL Albumin 4.4 (3.5-5.0) g/dL Discharge Plan Discharge Clinical Impression: Cellulitis of right arm, Cellulitis of arm, left Patient Disposition: Home, Self-Care Instructions: Cellulitis (ED) Additional Instructions: You did not have significant lab abnormalities, the CT scan did not reveal a discrete abscess there was no bone involvement with the infection. You are being treated for complex cellulitis. Take the Bactrim and the cephalexin as directed. Follow up with your primary care provider within a week. Prescriptions: New sulfamethoxazole-trimethoprim [Bactrim DS] 800-160 mg tablet 1 tab PO Q12H Qty: 20 0RF cephalexin 500 mg capsule 500 mg PO QID Qty: 40 0RF No Action methadone 10 mg Tablet 60 mg PO DAILY amoxicillin-pot clavulanate 875-125 mg tablet 1 tab PO BID Qty: 14 0RF doxycycline monohydrate 100 mg capsule 100 mg PO BID Qty: 14 0RF Interventions: ED Discharge Assessment Last Done: 03/22/24 23:11 Discharge Date/Time: 03/22/24 23:11 Print Language: Grenadian
[2024-03-22 15:05] LABS: Basophils Absolute Auto 0.1 X10*3/uL (0.0-0.2); Basophils Percent Auto 0.5 % (0-2); Eosinophils Absolute Auto 0.1 X10*3/uL (0.0-0.4); Eosinophils Percent Auto 1.2 % (0-4); Hematocrit 44.6 % (42.0-52.0); Hemoglobin 15.3 g/dl (14.0-18.0); Imm Gran Abs Auto 0.03 X10*3/uL (0.00-0.03); Imm Gran Pct Auto 0.3 % (0.0-0.4); Lymphocytes Absolute Auto 1.9 X10*3/uL (1.2-4.9); MANUAL DIFF FLAG SCAN; Mean Corpuscular HGB Conc 34.3 g/dl (31.0-36.0); Mean Corpuscular Hemoglobin 31.4 pg (27.0-33.0); Mean Corpuscular Volume 91.6 fL (80.0-98.0); Monocytes Absolute Auto 0.5 X10*3/uL (0.1-1.2); Monocytes Percent Auto 4.3 % (2-11); Neutrophils Absolute Auto 9.3 x10*3/uL (2.0-8.3); Neutrophils Percent Auto 77.7 % (45-73); PLT CLUMP 1; Red Blood Count 4.87 X10*6/uL (4.60-5.80); Red Cell Distribution Width 12.8 % (11.0-16.0); SCAN SMEAR FLAG 1
[2024-03-22 15:06] LABS: White Blood Count 11.9 X10*3/uL (4.8-10.8)
[2024-03-22 15:29] LABS: Alanine Aminotransferase 88 U/L (0-40); Albumin Level 4.4 g/dL (3.5-5.0); Alkaline Phosphatase 87 U/L (39-117); Anion Gap 19 (12-20); Aspartate Amino Transferase 59 U/L (5-37); Bilirubin Direct 0.2 mg/dL (0.0-0.5); Bilirubin Total 0.7 mg/dL (0.0-1.0); Blood Urea Nitrogen 22 mg/dL (9-16); Calcium 10.3 mg/dL (8.4-10.2); Carbon Dioxide 22 mmol/L (22-29); Chloride 104 mmol/L (96-108); Creatinine Clr Calc Pharmacy 85.5; Estimated Glomerular Filt Rate > 60; Glucose Random 117 mg/dL (60-115); Magnesium 2.3 mg/dL (1.6-2.6); Potassium 4.7 mmol/L (3.3-5.1); Sodium 140 mmol/L (135-145); Total Protein 9.3 g/dL (6.5-8.0)
[2024-03-22 15:36] LABS: Lactic Acid 2.5 mmol/L (0.5-2.0)
[2024-03-22 15:46] LABS: Mean Platelet Volume 9.8 fL (9.4-12.4); Platelet Count 237 X10*3/uL (160-400)
[2024-03-22 15:47] LABS: SLIDE REVIEW VERIFIED
[2024-03-22 16:56] LABS: Reflex Lactate? Lactic Acid Added
[2024-03-22] MEDS: SODIUM CHLORIDE 2208 ML IV (17:15)
--- NOTE | 2024-03-22 17:37 | PC.NURSE ---
pharmacy contacted re: Bettina Rivas0, pharmacy to deliver
[2024-03-22] MEDS: vancomycin HCL 1,000 MG, vancomycin HCL 750 MG in 0.9 % Sodium Chloride 500 ML 267.5 MG IV (18:13)
--- NOTE | 2024-03-22 18:34 | PC.NURSE ---
per NASREEN Yuan- hold reflex lactic until IVF given
[2024-03-22] MEDS: iohexoL 350 MG/ML 100 ML INFUS..BTL IV (18:54)
--- NOTE | 2024-03-22 19:35 | PC.NURSE ---
IVF still infusing at this time, delay dur to CT scan
--- NOTE | 2024-03-22 20:32 | PC.NURSE ---
repeat lactic obtained after nultiple attempts- pt awaiting CT scan results
[2024-03-22 20:47] LABS: ~Lactic Acid-LAB USE ONLY 1.6 mmol/L (0.5-2.0)
== END 2024-03-22 23:11 | disposition home or self-care (01) ==
PROVIDERS: Physician Assistant Medical; Emergency Provider Emergency Medicine Emergency Medical Services
DX: L03.113 Cellulitis of right upper limb (principal); L03.114 Cellulitis of left upper limb; F17.210 Nicotine dependence, cigarettes, uncomplicated; F14.10 Cocaine abuse, uncomplicated; Z79.899 Other long term (current) drug therapy
CPT/HCPCS: 36415; 73130; 73201; 80048; 80076; 83605; 83735; 85025; 87040; 96365; 96367; 99284; 99285; J3370; Q9967